=== PATIENT | male | born 1935 | race Caucasian/White ===

== ENCOUNTER → 2021-01-18 | Outpatient (CLI) | payer MEDICARE, OTHER ==
[2021-01-18 08:42] LABS: African American GFR (CKD) >90 (>60 ml/min/1.73 sqM); Blood Urea Nitrogen 25 mg/dL (9-20); Non-African American GFR(CKD) 84 (>60 ml/min/1.73 sqM)
--- NOTE | 2021-01-18 11:32 | CT ---
EXAMINATION TYPE: CT neck chest w con DATE OF EXAM: 01/18/2021 9:08 AM COMPARISON: None HISTORY: neoplasm base of tongue hypopharx, hoarseness CT DLP: 606.1 mGycm Automated exposure control for dose reduction was used. CONTRAST: CT scan of the neck and chest is performed following with IV Contrast, patient injected with 100 mL o f Isovue 300. Axial images are obtained, coronal and sagittal reformatted images are reviewed. FINDINGS: There are some scattered minute nodules, axial image #50 in the right lower lobe and right upper lobe axial image 26 subpleural location and left upper lobe subpleural axial image 23, axial im age 35, subpleural 5 mm nodule axial image 35 right upper lobe. Some scattered emphysematous changes are present Airway: The palatine tonsil on the left appears somewhat disproportionately enlarged as compared to t he right, there is some mass effect on the left lateral margin of the oropharynx, axial image #50. Po or definition of the structures in the neck due to a lack of fat.. Parotid/submandibular glands: No gross abnormality seen. Lateral to the submandibular gland on the l eft there is a lymph node measuring approximately 9 mm in short axis, not enlarged by CT criteria Carotid/Vascular Structures: Dense coronary artery calcifications are present. Aortic aneurysm measur ing 4.6 cm in the ascending aorta noted, root of the aorta is 4 cm, proximal descending aorta 3.3 cm . Left vertebral artery appears dominant. Osseous Structures: Degenerative disc changes are present with facet arthropathy, multilevel foramina l encroachment. Inflammatory changes present within the left maxillary sinus, sphenoid sinus and ethm oid air cells Other: 1 cm noncalcified nodule is present at the level of the right hemidiaphragm, axial image 54. T here is a large suprarenal cyst on the left measuring 15 cm. Hypodense focus within the left lobe of the liver measures 13 mm and is likely represent cyst. On axial image 51 soft tissue noted may relate to patient's known tongue mass. IMPRESSION: Indeterminate pulmonary nodules. Findings consistent with patient's history of tongue ma ss. Asymmetry in the appearance of the palatine tonsils is indeterminate. As described, there are michele e limitations to the exam. Aortic aneurysm.
== END | disposition home or self-care (01) ==
LOC: RADCTMAIN 07:46
PROVIDERS: ATTEND Otolaryngology
DX: C01 Malignant neoplasm of base of tongue (principal); R91.8 Other nonspecific abnormal finding of lung field; I71.2 Thoracic aortic aneurysm, without rupture
CPT/HCPCS: 82565; 84520; 70491; 71260; 36415; Q9967

== ENCOUNTER → 2021-02-10 | Outpatient (CLI) | payer MEDICARE, OTHER ==
--- NOTE | 2021-02-13 06:45 | PE ---
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 TECHNIQUE: Following the intravenous administration of 9.58 mCi of F-18 FDG, whole body images are p erformed from the skull base to the midthigh. Images are reviewed on the computer in the coronal, ax ial, and sagittal planes. Reconstructed rotating images are created on independent workstation and r eviewed on the computer. A localization and attenuation correction CT is performed in conjunction w ith the PET scan. Dedicated PET/CT imaging of the neck performed. Blood glucose level equals 95. SCAN: Initial Scan FINDINGS: SKULL BASE AND NECK: Large mass at level of the tongue base has greater left-sided component measuri ng approximately 4.9 x 4.7 cm on current study axial image 57 but extends to right of midline corresp onding to recent CT axial image 47 max SUV is 13.44. Abnormal right neck adenopathy near axial image 53 just anterior and lateral to carotid vessel measur es 1.6 x 1.5 cm, max SUV is 8.46. There are smaller hypermetabolic left neck lymph nodes at this leve l, max SUV is 6.58 on the left. There is abnormal subcentimeter hypermetabolic lymph node at level of thyroid gland axial image 76, max SUV is 5.24. CHEST, MEDIASTINUM, AND HILAR REGION: No abnormal hypermetabolic uptake or nodules. ABDOMEN AND PELVIS: No abnormal hypermetabolic uptake. OSSEOUS STRUCTURES: No abnormal hypermetabolic uptake. OTHER CT: Mild to moderate calcified plaque bilateral carotid bulb level. Severe three-vessel coronary artery calcification and/or stents. Mild cardiomegaly with small pericar dial effusion. Elevated left hemidiaphragm. Large thin-walled exophytic cyst occupying the majority of the left abdomen from the left kidney with local mass effect is noted. Enlarged prostate consistent with BPH. Scattered pelvic phleboliths. Postsurgical change to the lower lumbar spine. Moderate multilevel spurring and disc space narrowing. IMPRESSION: Known large neoplasm tongue base identified with greater left-sided component. There is a bnormal bilateral neck adenopathy. Multilevel involvement on the left is noted. No distal metastatic disease. Note is made of a large exophytic but benign-appearing thin-walled left-sided renal cyst hav ing significant mass effect in the abdomen. Continued imaging monitoring of tiny pulmonary nodules ad vised.
== END | disposition home or self-care (01) ==
LOC: RADPETMAIN 17:37
PROVIDERS: ATTEND Radiology Radiation Oncology
DX: C01 Malignant neoplasm of base of tongue (principal); R59.0 Localized enlarged lymph nodes; N28.1 Cyst of kidney, acquired
CPT/HCPCS: 78815; A9552

== ENCOUNTER 2021-02-17 12:45 | Day surgery (SDC) | payer MEDICARE, OTHER ==
[2021-02-15 14:13] VITALS: BMI 21.1
[~2021-02-17 12:45] MED LIST: LACTATED RINGERS 1,000 ML IV SCH
[2021-02-17 13:14] VITALS: TEMP 97.5
[2021-02-17] MEDS ORDERED: LIDOCAINE 1% (10MG/ML) FOR IV START INTRADERMA ONE (13:14)
--- NOTE | 2021-02-17 13:56 | P.GSHP ---
History of Present Illness H&P Date: 02/17/21 Chief Complaint: Dysphagia 85-year-old male recently diagnosed with tongue cancer. Patient to begin treatment next week. Patient has had progressive dysphasia. Tolerating only small amounts of liquids at this time. Mild sore throat as well. Contacted by oncology this week. They are requesting a PEG tube placement. Patient also concerned he is becoming more and more malnourished. Significant weight loss. BMI 21. 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 Past Anesthesia/Blood Transfusion Reactions: No Reported Reaction Past Psychological History: No Psychological Hx Reported Smoking Status: Never smoker Past Alcohol Use History: None Reported Past Drug Use History: None Reported - Past Family History Mother Family Medical History: No Reported History Medications and Allergies Home Medications Medication Instructions Recorded Confirmed Type Aspirin 81 mg PO DAILY 02/15/21 02/15/21 History Indapamide 1.25 mg PO QAM 02/15/21 02/15/21 History Losartan [Cozaar] 50 mg PO HS 02/15/21 02/15/21 History Pravastatin Sodium [Pravachol] 40 mg PO HS 02/15/21 02/15/21 History dilTIAZem HCL [dilTIAZem HCL 24Hr 240 mg PO HS 02/15/21 02/15/21 History ER (Xr)] Allergies Allergy/AdvReac Type Severity Reaction Status Date / Time No Known Allergies Allergy Verified 02/17/21 13:07 Surgical - Exam Vital Signs Temp Pulse Resp BP Pulse Ox 97.5 F L 80 16 150/84 96 02/17/21 13:10 02/17/21 13:10 02/17/21 13:10 02/17/21 13:10 02/17/21 13:10 Physical exam: General: Well-developed, malnourished appearing HEENT: Normocephalic, sclerae nonicteric Abdomen: Nontender, nondistended Extremities: No edema Neuro: Alert and oriented Assessment and Plan (1) Tongue cancer Narrative/Plan: Will proceed with EGD and PEG tube placement. Risks of bleeding, infection, scarring, bowel injury, inability to place catheter reviewed. He understands and wishes to proceed. Current Visit: Yes Status: Acute Code(s): C02.9 - MALIGNANT NEOPLASM OF TONGUE, UNSPECIFIED SNOMED Code(s): 503025939
--- NOTE | 2021-02-17 14:13 | P.PCN ---
Date of Procedure: 02/17/21 Procedure(s) Performed: PREOPERATIVE DIAGNOSIS: Malnutrition, dysphasia, tongue cancer POSTOPERATIVE DIAGNOSIS: Same PROCEDURE: EGD with PEG tube placement SURGEON: Dariela EBL: Minimal ANESTHESIA: Sedation COMPLICATIONS: None OPERATIVE PROCEDURE: The patient was placed in the supine position on the endoscopy table. The patient was sedated per anesthesia that time. The Olympus gastroscope was inserted into the oropharynx and passed under direct visualization to the region of the duodenum. No obstruction was seen. The pylorus was widely patent. The stomach was carefully inspected. The stomach was fully insufflated with air. The abdominal wall was inspected. The light was seen shining through the abdominal wall in the left upper quadrant. This site was chosen for PEG tube placement. The area was prepped in the usual sterile fashion. This area was then localized with lidocaine. No air was evident when aspirating while advancing the localizing needle into the stomach until the stomach was reached. A small vertical incision was made using the scalpel. The Seldinger needle was advanced into the lumen of the stomach the wire was advanced. The wire was grasped with an endoscopic snare. The wire was pulled through the oropharynx. The catheter was then threaded over the guidewire and the guidewire and catheter were pulled anteriorly until the hub of the PEG tube catheter was seated against the anterior wall the stomach. The circular bolster was applied and tightened down. The endoscope was then readvanced into the stomach. There was no evidence of any bleeding and there was appropriate tightness on the bolster. The catheter was cut appropriately. The dual port feeding adapter was applied. DISPOSITION: Stable to recovery room
[2021-02-17 14:47] VITALS: RESP 20
[2021-02-17 15:17] VITALS: BP 156/80; PULSE 69
== END 2021-02-17 15:52 | disposition home or self-care (01) ==
LOC: ORWHC2ENDO 12:45
PROVIDERS: ATTEND Surgery
DX: C02.9 Malignant neoplasm of tongue, unspecified (principal); R13.10 Dysphagia, unspecified; E46 Unspecified protein-calorie malnutrition; I10 Essential (primary) hypertension; E78.5 Hyperlipidemia, unspecified; Z98.890 Other specified postprocedural states; Z90.49 Acquired absence of other specified parts of digestive tract; Z79.82 Long term (current) use of aspirin; Z79.899 Other long term (current) drug therapy
CPT/HCPCS: 43246; B4087

== ENCOUNTER → 2021-06-01 | Outpatient (CLI) | payer MEDICARE, OTHER ==
--- NOTE | 2021-06-01 11:59 | FL ---
EXAMINATION TYPE: FL barium swallow w video DATE OF EXAM: 06/01/2021 MODIFIED SWALLOW / DEGLUTITION STUDY CLINICAL HISTORY: Dysphagia. TECHNIQUE: Deglutition study is performed utilizing thin liquid barium, honey and nectar thick liqui d barium. COMPARISON: CT dated 01/18/2021 FINDINGS: Laryngeal penetration was observed in all consistencies with suspected silent aspiration wi th the nectar consistency. Fluoroscopic time 1 minute and 7 seconds. No images in PACS. IMPRESSION: As above. Please refer to speech therapist notes for further details if necessary.
== END | disposition home or self-care (01) ==
LOC: RADFLMAIN 08:46
PROVIDERS: ATTEND Radiology Radiation Oncology
DX: C01 Malignant neoplasm of base of tongue (principal); C77.0 Secondary and unspecified malignant neoplasm of lymph nodes of head, face and neck; R13.10 Dysphagia, unspecified
CPT/HCPCS: 74230

== ENCOUNTER → 2021-06-30 | Outpatient (CLI) | payer MEDICARE, OTHER ==
--- NOTE | 2021-07-03 09:45 | PE ---
EXAMINATION TYPE: PET CT fusion skull to thigh DATE OF EXAM: 06/30/2021 COMPARISON: Neck and chest CT January 18, 2021. PET/CT February 10, 2021. HISTORY: Head and neck cancer progress study. 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 Completed chemotherapy May 02, 2021. Radiation treatme nt to the neck. TECHNIQUE: Following the intravenous administration of 11.73 mCi of F-18 FDG, whole body images are performed from the skull base to the midthigh. Images are reviewed on the computer in the coronal, a xial, and sagittal planes. Reconstructed rotating images are created on independent workstation and reviewed on the computer. A localization and attenuation correction CT is performed in conjunction with the PET scan. Blood glucose level equals 101. Dedicated PET/CT imaging of the neck performed. SCAN: Subsequent Scan FINDINGS: SKULL BASE AND NECK: Large mass at level of the tongue base now not clearly identified, no abnormal hypermetabolic uptake at this level. Abnormal right neck adenopathy now not clearly identified. No definitive hypermetabolic left-sided ly mph nodes remain present. There is now nonvisualized hypermetabolic lymph node left thyroid gland lev el. No new hypermetabolic masses or lymph nodes. CHEST, MEDIASTINUM, AND HILAR REGION: No new areas of abnormal hypermetabolic uptake or nodules. ABDOMEN AND PELVIS: No new areas of abnormal hypermetabolic uptake. OSSEOUS STRUCTURES: No new Areas of abnormal hypermetabolic uptake. OTHER CT: Mild to moderate calcified plaque bilateral carotid bulb level. Severe three-vessel coronary artery calcification and/or stents. Mild cardiomegaly with small pericar dial effusion. Elevated left hemidiaphragm. Large thin-walled exophytic cyst occupying the majority of the left abdomen presumed originating from the left kidney with local mass effect is redemonstrated. Enlarged prostate consistent with BPH. Scattered pelvic phleboliths. Postsurgical change to the lower lumbar spine. Moderate multilevel spurring and disc space narrowing. IMPRESSION: Complete positive treatment response. No new or residual areas of abnormal hypermetabolic uptake.
== END | disposition home or self-care (01) ==
LOC: RADXRMAIN 10:55
PROVIDERS: ATTEND Radiology Radiation Oncology
DX: C01 Malignant neoplasm of base of tongue (principal)
CPT/HCPCS: 78815; A9552

== ENCOUNTER → 2022-01-08 | Outpatient (CLI) | payer MEDICARE, OTHER ==
--- NOTE | 2022-01-08 19:20 | CT ---
EXAMINATION TYPE: CT sacrum wo con, CT lumbar spine wo con CT DLP: 1029.70 mGycm, Automated exposure control for dose reduction was used. DATE OF EXAM: 01/08/2022 4:54 PM COMPARISON: PET/CT 06/30/2021 CLINICAL INDICATION:Male, 86 years old with history of M51.37, low back pain that radiates into legs. hx of back sx many decades ago. TECHNIQUE: * Axial images were obtained of the sacrum . Additional coronal and sagittal reformatted images and soft tissue and bone window were obtained for review. * Multiple axial images were obtained from the midportion of T11 through the sacroiliac joints. Sof t tissue and bone windows in coronal and sagittal planes were obtained and reviewed. Contrast used: None Oral contrast used: None FINDINGS: Sacrum: There is a destructive osseous lesion the posterior element of L5 which extends into the spinal canal findings similar to visualize given streak artifact measures at least 20 x 17 x 19 mm. Causing effac ement of the forming nerves in the nerve roots at L5-S1 and the left neural foramen. Post fixation changes to the posterior elements of the lower lumbar spine extending from L5 to S2. Th ere is no evidence of fracture. Hardware appears intact. There is degeneration changes of the sacroil iac joints bilaterally. These spinal canal in the sacrum is patent. Lumbar: Alignment: There are 5 lumbar type vertebral bodies within normal alignment. Bone: No evidence of fracture is identified. A forementioned osseous lesion within the L5 vertebral body with impression upon the spinal canal and left neural foramen. No other destructive lesions are visualized. Multilevel osteophyte formation and facet joint arthropathy is present. Discs: T12-L1: No spinal canal or neural foraminal stenosis is identified. L1-L2: Disc bulge with facet joint arthropathy result in mild spinal canal stenosis and moderate bila teral neural foraminal stenosis. L2-L3: Disc bulge with facet joint arthropathy result in mild spinal canal stenosis and moderate bila teral neural foraminal stenosis. L3-L4: Disc bulge with facet joint arthropathy result in severe spinal canal stenosis and moderate to severe bilateral neural foraminal stenosis. L4-L5: No significant spinal canal or neural foraminal stenosis is identified. L5-S1: Vertebral body mass within L5 which erodes the posterior endplate and extends into the spinal canal with impression upon likely the forming nerves roots and the exiting L5-S1 left nerve root. Other: Large left renal cyst measuring up to 21 x 14 cm in the left retroperitoneum favored to be manjinder al etiology. Nonobstructing left renal calculus. Prostate gland is enlarged measuring up to 5.4 cm tr ansverse dimension. Scattered pelvic phleboliths. Atherosclerosis of the arterial vasculature. Chroni c diverticulosis is present. IMPRESSION: 1. No evidence of acute fracture. 2. L5 vertebral body eccentric left osseous expansile/destructive lesion measuring up to 20 mm which impresses upon the forming nerve roots and the left L5-S1 exiting nerve. Further evaluation with MRI with IV contrast is recommended. This is new from PET on 06/30/2021 finding could relate to metastati c disease in the appropriate clinical setting. 3. L3-4 severe spinal stenosis secondary to facet joint arthropathy and disc bulge. 4. Postsurgical changes with hardware in place and intact. 5. Clonic diverticulosis. 6. Prostatomegaly. Correlate with PSA.
== END | disposition home or self-care (01) ==
LOC: RADCTMAIN 14:10
PROVIDERS: ATTEND Family Medicine
DX: M51.37 Other intervertebral disc degeneration, lumbosacral region (principal); M48.061 Spinal stenosis, lumbar region without neurogenic claudication; K57.30 Diverticulosis of large intestine without perforation or abscess without bleeding
CPT/HCPCS: 72131; 72192

== ENCOUNTER → 2022-01-08 | Outpatient (CLI) | payer MEDICARE ==
[2022-01-08 13:59] LABS: Basophils # (A) 0.1 k/uL (0-0.2); Basophils % (A) 1 %; Eosinophils # (A) 0.1 k/uL (0-0.7); Eosinophils % (A) 1 %; HCT 43.2 % (39.0-53.0); HGB 13.7 gm/dL (13.0-17.5); Hypochromasia Slight; Lymphocytes # (A) 0.7 k/uL (1.0-4.8); Lymphocytes % (A) 21 %; MCH 29.4 pg (25.0-35.0); MCHC 31.7 g/dL (31.0-37.0); MCV 92.7 fL (80.0-100.0); Mean Platelet Volume 7.7; Monocytes # (A) 0.5 k/uL (0-1.0); Monocytes % (A) 14 %; Neutrophils # (A) 2.1 k/uL (1.3-7.7); Neutrophils % (A) 59 %; Platelet Count 177 k/uL (150-450); RBC 4.66 m/uL (4.30-5.90); RDW 12.8 % (11.5-15.5); WBC 3.6 k/uL (3.8-10.6)
[2022-01-08 14:14] LABS: ALT 26 U/L (4-49); AST 38 U/L (17-59); African American GFR (CKD) >90 (>60 ml/min/1.73 sqM); Albumin/Globulin Ratio 1.4; Alkaline Phosphatase 113 U/L (38-126); Anion Gap 7 mmol/L; Blood Urea Nitrogen 18 mg/dL (9-20); Calcium 9.3 mg/dL (8.4-10.2); Carbon Dioxide 34 mmol/L (22-30); Chloride 94 mmol/L (98-107); Globulin 2.8 g/dL; Glucose 103 mg/dL (74-99); Non-African American GFR(CKD) 85 (>60 ml/min/1.73 sqM); Potassium 4.1 mmol/L (3.5-5.1); Sodium 135 mmol/L (137-145); Total Bilirubin 0.7 mg/dL (0.2-1.3); Total Protein 6.8 g/dL (6.3-8.2)
[2022-01-08 14:30] LABS: T4, Free (Free Thyroxine) 1.06 ng/dL (0.78-2.19)
== END | disposition home or self-care (01) ==
LOC: LABWHC1 13:34
PROVIDERS: ATTEND Family Medicine
DX: M51.36 Other intervertebral disc degeneration, lumbar region (principal); R60.9 Edema, unspecified; Z95.5 Presence of coronary angioplasty implant and graft; M51.37 Other intervertebral disc degeneration, lumbosacral region
CPT/HCPCS: 36415; 80053; 82306; 83880; 84439; 84443; 85025; 85379

== ENCOUNTER → 2022-01-18 | Outpatient (CLI) | payer MEDICARE, OTHER ==
--- NOTE | 2022-01-19 11:14 | CA ---
Transthoracic Echo Report Name: Moisés Diaz Age: 86 Gender: M : 1935 Exam Date: 01/18/2022 13:05 Exam Location: [place] [facility] Ht (in): 72 Wt (lb): 160 Ordering Physician: Jamison Recinos MD Attending/Referring Phys: Kaila Yoder [facility] [employer] Suki Badillo RDCS Procedure CPT: Indications: R60.9 Edema, unspecified Cardiac Hx: Technical Quality: Good Contrast 1: Total Dose (mL): Contrast 2: Total Dose (mL): MEASUREMENTS (Male / Female) Normal Values 2D ECHO LV Diastolic Diameter PLAX 4.2 cm 4.2 - 5.9 / 3.9 - 5.3 cm LV Systolic Diameter PLAX 2.5 cm IVS Diastolic Thickness 1.4 cm 0.6 - 1.0 / 0.6 - 0.9 cm LVPW Diastolic Thickness 1.3 cm 0.6 - 1.0 / 0.6 - 0.9 cm LV Relative Wall Thickness 0.6 RV Internal Dim ED PLAX 3.3 cm LA Systolic Diameter LX 3.8 cm 3.0 - 4.0 / 2.7 - 3.8 cm LA Volume 73.9 cm??? 18 - 58 / 22 - 52 cm??? M-MODE Aortic Root Diameter MM 3.5 cm MV E Point Septal Separation 0.3 cm AV Cusp Separation MM 1.4 cm DOPPLER AV Peak Velocity 158.5 cm/s AV Peak Gradient 10.1 mmHg MV Area PHT 4.0 cm??? Mitral E Point Velocity 86.3 cm/s Mitral A Point Velocity 104.7 cm/s Mitral E to A Ratio 0.8 MV Deceleration Time 188.2 ms MV E' Velocity 7.6 cm/s Mitral E to MV E' Ratio 11.3 TR Peak Velocity 240.1 cm/s TR Peak Gradient 23.1 mmHg Right Ventricular Systolic Press 27.7 mmHg FINDINGS Left Ventricle Left ventricular ejection fraction is estimated at 60-65 %. Left ventricular cavity size normal. Moderately increased septal wall thickness. Right Ventricle Mild right ventricular dilatation. Right Atrium Normal right atrial size. Left Atrium Moderately increased left atrial volume. No evidence for an atrial septal defect. Mitral Valve Mitral valve thickened. Mitral annular calcification. Mild mitral regurgitation. Aortic Valve Trileaflet aortic valve. No aortic valve stenosis or regurgitation. Focal thickening of the aortic valve cusps. Tricuspid Valve Mild tricuspid regurgitation. Pulmonic Valve Trace to mild pulmonic regurgitation. Pericardium Normal pericardium. No pericardial effusion. Aorta Normal size aortic root and proximal ascending aorta. CONCLUSIONS Normal left ventricular ejection fraction 60-65% Moderate LVH Mild mitral regurgitation Aortic valve sclerosis without significant stenosis Mild tricuspid regurgitation Previewed by: Dr. Prashant Colby DO (Electronically Signed) Final Date: 19 January 2022 11:12
== END | disposition home or self-care (01) ==
LOC: RADECHMAIN 12:58
PROVIDERS: ATTEND Family Medicine
DX: I08.3 Combined rheumatic disorders of mitral, aortic and tricuspid valves (principal)
CPT/HCPCS: 93306

== ENCOUNTER 2022-02-27 08:00 | Day surgery (SDC) | payer MEDICARE, OTHER ==
[~2022-02-27 08:00] MED LIST changes: +ALPRAZolam 0.25 MG TAB PO PRN; +HYDROmorphone 0.5 MG/0.5 ML SYRINGE IVP PRN; -LACTATED RINGERS 1,000 ML IV SCH
[2022-02-27 08:48] VITALS: RESP 16; TEMP 97.9
[2022-02-27 08:48] LABS: Mean Platelet Volume 7.2; Platelet Count 118 k/uL (150-450)
--- NOTE | 2022-02-27 10:34 | CT ---
EXAMINATION TYPE: CT biopsy bone superficial DATE OF EXAM: 02/27/2022 COMPARISON: 01/30/2022 HISTORY: L5 vertebral body lesion CT DLP: 2194 mGycm The procedure is discussed with the patient, the risks, complications, benefits and alternatives, wer e discussed and any questions were answered. Informed consent was obtained. The patient is placed p renee on the CT table, prepped and draped in the usual sterile fashion. Utilizing a 20-gauge biopsy needle access into the destructive L5 vertebral mass was achieved with on e sample obtained. Pathology pending. All elements of maximal barrier sterile technique were utiliz ed. The patient remained stable throughout the procedure with no immediate postprocedural complicati on. IMPRESSION: 1. Successful CT guided fine core biopsy L5 vertebral body mass.
[2022-02-27 11:06] VITALS: BP 128/76; PULSE 65
== END 2022-02-27 11:40 | disposition home or self-care (01) ==
LOC: RADPROMAIN 08:00
PROVIDERS: ATTEND Internal Medicine Hematology & Oncology
DX: S34.115A Complete lesion of L5 level of lumbar spinal cord, initial encounter (principal)
CPT/HCPCS: 20220; 36415; 77012; 85049; 85610

== ENCOUNTER 2022-09-04 10:14 | Emergency (ER) | payer MEDICARE, OTHER ==
[2022-09-04 10:46] VITALS: TEMP 98
[2022-09-04] MEDS ORDERED: SODIUM CHLORIDE 0.9% 1,000 ML IV STA (12:21)
--- NOTE | 2022-09-04 12:39 | ED ---
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 Patient states he has noticed it in bilateral lower extremities and it is equal. Denies any urinary or bowel incontinence, retention. Denies any saddle anesthesias. Denies any abdominal pain, chest pain, shortness of breath. Denies any other weakness or numbness. Denies any headaches. States he has been eating. Presents for further evaluation this time with family over concern for the progressive worsening weakness. Does have close follow-up with PCP's, as well as oncology. - Related Data Home Medications Medication Instructions Recorded Confirmed Aspirin 81 mg PO DAILY 02/15/21 09/04/22 Indapamide 1.25 mg PO QAM 02/15/21 09/04/22 Pravastatin Sodium [Pravachol] 40 mg PO HS 02/15/21 09/04/22 dilTIAZem HCL [dilTIAZem HCL 24Hr 240 mg PO HS 02/15/21 09/04/22 ER (Xr)] Multivitamins, Thera [Multivitamin 1 tab PO DAILY 02/12/22 09/04/22 (formulary)] Omeprazole 20 mg PO DAILY 02/12/22 09/04/22 Vit C/E/Zn/Coppr/Lutein/Zeaxan 1 cap PO BID 02/12/22 09/04/22 [Preservision Areds 2 Softgel] Docusate [Colace] 100 mg PO DAILY 09/04/22 09/04/22 Furosemide [Lasix] 20 mg PO DAILY 09/04/22 09/04/22 HYDROcodone/APAP 5-325MG [[place] 1 tab PO Q6HR PRN 09/04/22 09/04/22 5-325] Allergies Allergy/AdvReac Type Severity Reaction Status Date / Time cinnamon Allergy Anaphylaxis Verified 09/04/22 15:45 Penicillins Allergy Rash/Hives Verified 09/04/22 15:45 Review of Systems ROS Statement: Those systems with pertinent positive or pertinent negative responses have been documented in the HPI. Review of Systems: CONST: Denies fever EYES: Denies blurry vision ENT: Denies nasal congestion C/V: Denies Chest pain RESP: Denies shortness of breath GI: Denies abdominal pain : Denies dysuria SKIN: Denies rash. MSK: Denies joint pain. NEURO: Endorses lower extremity weakness ROS Other: All systems not noted in ROS Statement are negative. 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 Past Anesthesia/Blood Transfusion Reactions: No Reported Reaction Past Psychological History: No Psychological Hx Reported Smoking Status: Never smoker Past Alcohol Use History: None Reported Past Drug Use History: None Reported - Past Family History Mother Family Medical History: No Reported History General Exam - General Exam Comments Initial Comments: General: Appears in no acute distress. Patient is cachectic. HEAD: Normal with no signs of head trauma. EYES: PERRLA, EOMI, conjunctiva normal, no discharge. Pupils are 2 mm equal bilaterally. ENT: Hearing grossly intact, normal oropharynx. RESPIRATORY: Clear breath sounds bilaterally. No wheezes, rales, or rhonchi. C/V: Regular rate and rhythm. S1 and S2 auscultated, significant pitting edema in bilateral lower extremities., peripheral pulses 2+ and intact throughout ABD: Abd is soft, nontender, nondistended EXT: Normal range of motion, no obvious deformity SKIN: No rashes or lesions observed on exposed skin. NEURO: Alert and oriented x 4. Cranial nerves II-XII intact. 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 Patient does have lower extremity weakness, able to lift against gravity but it is difficult. 4-5 strength in bilateral lower extremities. GCS is 15. No other focal neurological deficits appreciated. No saddle anesthesias. Limitations: no limitations Course Vital Signs 09/04/22 09/04/22 09/04/22 10:43 12:12 12:30 Temperature 98.0 F Pulse Rate 90 86 78 Respiratory 18 16 18 Rate Blood Pressure 115/80 127/69 127/69 O2 Sat by Pulse 98 98 98 Oximetry 09/04/22 09/04/22 09/04/22 13:00 13:30 14:30 Temperature Pulse Rate 76 72 75 Respiratory 20 20 18 Rate Blood Pressure 123/82 131/77 143/97 O2 Sat by Pulse 79 L 98 98 Oximetry 09/04/22 15:30 Temperature Pulse Rate 83 Respiratory 18 Rate Blood Pressure 136/83 O2 Sat by Pulse 98 Oximetry Medical Decision Making - Medical Decision Making Was pt. sent in by a medical professional or institution (, PA, FORESTRY EXTENSION SPECIALIST, urgent care, hospital, or group home...) When possible be specific @ -No Did you speak to anyone other than the patient for history (EMS, parent, family, police, friend...)? What history was obtained from this source @ -No Did you review nursing and triage notes (agree or disagree)? Why? @ -I reviewed and agree with nursing and triage notes Were old charts reviewed (outside hosp., previous admission, EMS record, old EKG, old radiological studies, urgent care reports/EKG's, group home records)? Report findings @ -Old lumbar spine CTs were reviewed, including from May which did reveal a lytic distractive lesions of L5 as well as enlarging hepatic epistatic focus Differential Diagnosis (chest pain, altered mental status, abdominal pain women, abdominal pain men, vaginal bleeding, weakness, fever, dyspnea, syncope, headache, dizziness, GI bleed, back pain, seizure, CVA, palpatations, mental health, musculoskeletal)? @ -Differential Weakness: Hypoglycemia, shock, sepsis, hyponatremia, anemia, infection, [place], ETOH, adverse medicine reaction, overdose, stroke, this is not meant to be an all-inclusive list. EKG interpreted by me (3pts min.). @ -As above X-rays interpreted by me (1pt min.). @ -Chest x-ray reveals no obvious acute cardiopulmonary process. Right hip and pelvis x-ray reveals no obvious acute process. Patient does have some foreshortening of the right femoral neck per radiology and they recommend CT imaging. CT interpreted by me (1pt min.). @ -CT imaging of the lumbar spine and brain CT showed no obvious acute process. His chronic degenerative and lytic changes and lumbar spine which are minimally changed per radiology. CT brain reveals no obvious acute intracranial process. U/S interpreted by me (1pt. min.). @ -None done What testing was considered but not performed or refused? (CT, X-rays, U/S, labs)? Why? @ -None What meds were considered but not given or refused? Why? @ -None Did you discuss the management of the patient with other professionals (migdalia cano i.e. , PA, FORESTRY EXTENSION SPECIALIST, lab, RT, psych nurse, long term care social worker, department manager, teacher, seismology technical officer, showcase trimmer)? Give summary @ -No Was smoking cessation discussed for >3mins.? @ -No Was critical care preformed (if so, how long)? @ -No Were there social determinants of health that impacted care today? How? (Homelessness, low income, unemployed, alcoholism, drug addiction, transportatio n, low edu. Level, literacy, decrease access to med. care, [facility], rehab)? @ -No Was there de-escalation of care discussed even if they declined (Discuss DNR or withdrawal of care, Hospice)? DNR status @ -No What co-morbidities impacted this encounter? (DM, HTN, Smoking, COPD, CAD, Cancer, CVA, ARF, Chemo, Hep., AIDS, mental health diagnosis, sleep apnea, morbid obesity)? @ -History of metastatic cancer Was patient admitted / discharged? Hospital course, mention meds given and route, prescriptions, significant lab abnormalities, going to OR and other pertinent info. @ -Based on the patient's presentation and physical exam, presents with generalized weakness. Has been progressive over the last 2 weeks. Has a known history of metastatic cancer. Also apparently has a known lytic lesion in the lumbar spine. Presents for further evaluation at this time. We will obtain weakness labs including screening EKG, BNP, CT brain and lumbar spine, as well as chest x-ray and right hip and pelvis x-rays patient states he intermittently will have right hip pain which is somewhat abnormal for him. Vital signs within acceptable limits. He does appear cachectic. He'll be given a 1 L fluid bolus. He was in agreement this plan. EKG showed no signs of acute ischemia.Patient's imaging did reveal the chronic lytic changes and degeneration in the lumbar spine with minimal change. Right hip x-ray does show foreshortening of the right femoral neck. Radiology recommends CT. I did offer CT imaging of the pelvis as well as right hip for the patient however he declines as he states he is able to stand on it, he has chronic mid and right hip pain and this is not acute. Does not believe it is broken and does not want the CT. I did discuss the concerns for possible fracture and he understands but states he obtain a CT later on if he feels the need if the pain changes. He is not concerned. He does not want CT imaging of the right hip at this time. Patient's laboratory studies are remarkable for a mild hypokalemia at 3.2 as well as hyponatremia of 129 and hypochloremia of 87 all of which were replenishe d with IV fluids as well as supplemental potassium. Patient is a chronic anemia with a hemoglobin of 11.9. Carbon dioxide is elevated to 37 but this is chronic for the patient. Troponin is undetectable. BNP within normal limits. 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 I discussed results with the patient. Due to the low back pain, I would like to obtain a rectal exam and he was in agreement with. Rectal exam performed the presence of the staff member. Good rectal tone. Patient is not having urinary or bowel incontinence, is not having saddle anesthesias. Simply bilateral lower extremity weakness. I do not have significant concern for cauda equina syndrome at this time but I did recommend follow-up MRI if symptoms worsen. She was in agreement this plan. He would like to go home at this time. I believe this is reasonable. Once again I reiterated possible follow-up MRI versus CT to evaluate patient's right hip. They were in agreement this plan. They do have follow-up with physician this week because appointments. They will return if any worsening symptoms. Strict return precautions discussed. Patient will be discharged home at this time. We discussed at length that his symptoms are likely related to his chronic metastatic cancer. I instructed the patient to follow up with their PCP in the next 1-3 days. I explained that the patient should return to the emergency department if they e xperience any worsening symptoms. Strict return precautions were discussed with the patient. The patient expressed understanding of these instructions. I answered all questions that the patient had. The patient was discharged home in fair condition with their prescriptions and follow up information. Undiagnosed new problem with uncertain prognosis? @ -No Drug Therapy requiring intensive monitoring for toxicity (Heparin, Nitro, Insulin, Cardizem)? @ -No Were any procedures done? @ -No Diagnosis/symptom? @ -Weakness, dehydration, hypokalemia Acute, or Chronic, or Acute on Chronic? @ -Acute Uncomplicated (without systemic symptoms) or Complicated (systemic symptoms)? @ -Complicated Side effects of treatment? @ -none Exacerbation, Progression, or Severe Exacerbation] @ -no Poses a threat to life or bodily function? @ -no Diagnosis/symptom? @ -Metastatic cancer Acute, or Chronic, or Acute on Chronic? @ -Acute on chronic Uncomplicated (without systemic symptoms) or Complicated (systemic symptoms)? @ -Complicated Side effects of treatment? @ -none Exacerbation, Progression, or Severe Exacerbation] @ -no Poses a threat to life or bodily function? @ -Yes - Lab Data Result diagrams: 09/04/22 13:12 09/04/22 13:12 Lab Results 09/04/22 09/04/22 09/04/22 Range/Units 13:12 13:12 13:12 WBC 8.4 (3.8-10.6) k/uL RBC 4.46 (4.30-5.90) m/uL Hgb 11.9 L (13.0-17.5) gm/dL Hct 36.3 L (39.0-53.0) % MCV 81.4 (80.0-100.0) fL MCH 26.7 (25.0-35.0) pg MCHC 32.8 (31.0-37.0) g/dL RDW 16.0 H (11.5-15.5) % Plt Count 344 (150-450) k/uL MPV 7.0 Neutrophils % 80 % Lymphocytes % 6 % Monocytes % 12 % Eosinophils % 0 % Basophils % 0 % Neutrophils # 6.7 (1.3-7.7) k/uL Lymphocytes # 0.5 L (1.0-4.8) k/uL Monocytes # 1.0 (0-1.0) k/uL Eosinophils # 0.0 (0-0.7) k/uL Basophils # 0.0 (0-0.2) k/uL Anisocytosis Slight PT 11.5 (9.0-12.0) sec INR 1.1 (<1.2) APTT 25.5 (22.0-30.0) sec Sodium 129 L (137-145) mmol/L Potassium 3.2 L (3.5-5.1) mmol/L Chloride 87 L (98-107) mmol/L Carbon Dioxide 37 H (22-30) mmol/L Anion Gap 5 mmol/L BUN 14 (9-20) mg/dL Creatinine 0.37 L (0.66-1.25) mg/dL Est GFR (CKD-EPI)AfAm >90 (>60 ml/min/1.73 sqM) Est GFR (CKD-EPI)NonAf >90 (>60 ml/min/1.73 sqM) Glucose 103 H (74-99) mg/dL Plasma Lactic Acid Ciro (0.7-2.0) mmol/L Calcium 7.9 L (8.4-10.2) mg/dL Magnesium 1.9 (1.6-2.3) mg/dL Total Bilirubin 1.2 (0.2-1.3) mg/dL AST 105 H (17-59) U/L ALT 50 H (4-49) U/L Alkaline Phosphatase 367 H (38-126) U/L Troponin I (0.000-0.034) ng/mL NT-Pro-B Natriuret Pep pg/mL Total Protein 5.7 L (6.3-8.2) g/dL Albumin 2.8 L (3.5-5.0) g/dL Urine Color Urine Appearance (Clear) Urine pH (5.0-8.0) Ur Specific Ponce (1.001-1.035) Urine Protein (Negative) Urine Glucose (UA) (Negative) Urine Ketones (Negative) Urine Blood (Negative) Urine Nitrite (Negative) Urine Bilirubin (Negative) Urine Urobilinogen (<2.0) mg/dL Ur Leukocyte Esterase (Negative) 09/04/22 09/04/22 09/04/22 Range/Units 13:12 13:12 13:12 WBC (3.8-10.6) k/uL RBC (4.30-5.90) m/uL Hgb (13.0-17.5) gm/dL Hct (39.0-53.0) % MCV (80.0-100.0) fL MCH (25.0-35.0) pg MCHC (31.0-37.0) g/dL RDW (11.5-15.5) % Plt Count (150-450) k/uL MPV Neutrophils % % Lymphocytes % % Monocytes % % Eosinophils % % Basophils % % Neutrophils # (1.3-7.7) k/uL Lymphocytes # (1.0-4.8) k/uL Monocytes # (0-1.0) k/uL Eosinophils # (0-0.7) k/uL Basophils # (0-0.2) k/uL Anisocytosis PT (9.0-12.0) sec INR (<1.2) APTT (22.0-30.0) sec Sodium (137-145) mmol/L Potassium (3.5-5.1) mmol/L Chloride (98-107) mmol/L Carbon Dioxide (22-30) mmol/L Anion Gap mmol/L BUN (9-20) mg/dL Creatinine (0.66-1.25) mg/dL Est GFR (CKD-EPI)AfAm (>60 ml/min/1.73 sqM) Est GFR (CKD-EPI)NonAf (>60 ml/min/1.73 sqM) Glucose (74-99) mg/dL Plasma Lactic Acid Ciro 1.9 (0.7-2.0) mmol/L Calcium (8.4-10.2) mg/dL Magnesium (1.6-2.3) mg/dL Total Bilirubin (0.2-1.3) mg/dL AST (17-59) U/L ALT (4-49) U/L Alkaline Phosphatase (38-126) U/L Troponin I (0.000-0.034) ng/mL NT-Pro-B Natriuret Pep 246 pg/mL Total Protein (6.3-8.2) g/dL Albumin (3.5-5.0) g/dL Urine Color Yellow Urine Appearance Clear (Clear) Urine pH 7.0 (5.0-8.0) Ur Specific Ponce 1.010 (1.001-1.035) Urine Protein Negative (Negative) Urine Glucose (UA) Negative (Negative) Urine Ketones Negative (Negative) Urine Blood Negative (Negative) Urine Nitrite Negative (Negative) Urine Bilirubin Negative (Negative) Urine Urobilinogen 4.0 (<2.0) mg/dL Ur Leukocyte Esterase Negative (Negative) 09/04/22 Range/Units 13:12 WBC (3.8-10.6) k/uL RBC (4.30-5.90) m/uL Hgb (13.0-17.5) gm/dL Hct (39.0-53.0) % MCV (80.0-100.0) fL MCH (25.0-35.0) pg MCHC (31.0-37.0) g/dL RDW (11.5-15.5) % Plt Count (150-450) k/uL MPV Neutrophils % % Lymphocytes % % Monocytes % % Eosinophils % % Basophils % % Neutrophils # (1.3-7.7) k/uL Lymphocytes # (1.0-4.8) k/uL Monocytes # (0-1.0) k/uL Eosinophils # (0-0.7) k/uL Basophils # (0-0.2) k/uL Anisocytosis PT (9.0-12.0) sec INR (<1.2) APTT (22.0-30.0) sec Sodium (137-145) mmol/L Potassium (3.5-5.1) mmol/L Chloride (98-107) mmol/L Carbon Dioxide (22-30) mmol/L Anion Gap mmol/L BUN (9-20) mg/dL Creatinine (0.66-1.25) mg/dL Est GFR (CKD-EPI)AfAm (>60 ml/min/1.73 sqM) Est GFR (CKD-EPI)NonAf (>60 ml/min/1.73 sqM) Glucose (74-99) mg/dL Plasma Lactic Acid Ciro (0.7-2.0) mmol/L Calcium (8.4-10.2) mg/dL Magnesium (1.6-2.3) mg/dL Total Bilirubin (0.2-1.3) mg/dL AST (17-59) U/L ALT (4-49) U/L Alkaline Phosphatase (38-126) U/L Troponin I <0.012 (0.000-0.034) ng/mL NT-Pro-B Natriuret Pep pg/mL Total Protein (6.3-8.2) g/dL Albumin (3.5-5.0) g/dL Urine Color Urine Appearance (Clear) Urine pH (5.0-8.0) Ur Specific Ponce (1.001-1.035) Urine Protein (Negative) Urine Glucose (UA) (Negative) Urine Ketones (Negative) Urine Blood (Negative) Urine Nitrite (Negative) Urine Bilirubin (Negative) Urine Urobilinogen (<2.0) mg/dL Ur Leukocyte Esterase (Negative) - EKG Data -: EKG Interpreted by Me EKG Comments: 12-lead Electrocardiogram Interpretation Note EKG was reviewed and interpreted by myself. 12-lead ECG performed at 1225 is interpreted by me as revealing normal sinus rhythm at a rate of 80 beats per minute. Left axis deviation. CT interval is 190 ms, QRS duration is 92 ms, QTc is 427 ms.. Flattening of T waves in leads V2 and V3. Unknown chronicity of his no prior EKG. No other acute T-wave or ST segment abnormality to suggest acute ischemia.. R wave progression across the precordium was satisfactory. By my interpretation this EKG is non-diagnostic for acute ischemia. Disposition Clinical Impression: Metastatic cancer, Weakness, Dehydration, Hypokalemia Disposition: HOME SELF-CARE Condition: Good Instructions (If sedation given, give patient instructions): Weakness (ED) Is patient prescribed a controlled substance at d/c from ED?: No Referrals: Jamison Recinos MD [Primary Care Provider] - 1-2 days Time of Disposition: 15:25
--- NOTE | 2022-09-04 12:59 | CT ---
EXAMINATION TYPE: CT brain wo con DATE OF EXAM: 09/04/2022 COMPARISON: None HISTORY: weakness CT DLP: 1099.[address] of the brain was performed. The ventricles, basal cisterns and sulci overlying the cerebral convexities demonstrate mild enlargem ent. There is no evidence for intracranial hemorrhage or sulcal effacement. There is decreased attenuation about the periventricular white matter and deep white matter of both c erebral hemispheres, compatible with chronic small vessel ischemia. Differential diagnosis does inclu de demyelination. No mass effects are seen.No midline shift. Osseous calvarium is intact. If symptoms persist consider MRI. IMPRESSION: 1. Age related atrophic and chronic small vessel ischemic change without acute intracranial process s een at this time.
--- NOTE | 2022-09-04 13:09 | CT ---
EXAMINATION TYPE: CT lumbar spine wo con DATE OF EXAM: 09/04/2022 COMPARISON: 05/31/2022 HISTORY: BLLE weakness CT DLP: 721.[address] of the lumbar spine was performed. Bone and soft tissue window settings are submitted as well as coronal and sagittal reconstructions. L1-L2: Moderate to severe degenerative disc space narrowing redemonstrated. No significant disc bulge , herniation or protrusion. No evidence for central stenosis. Bilateral spondylolysis identified. For ton are patent bilaterally. L2-L3: Severe degenerative disc space narrowing and vacuum disc seen. Mild posterior disc bulge. Effa cement ventral thecal sac with moderate central stenosis noted. Hypertrophy of the ligamentum flavum and facet joint arthropathy. No significant neural foraminal encroachment at this time. L3-L4: Severe degenerative disc space narrowing and vacuum disc seen. Mild posterior disc bulge. Effa cement ventral thecal sac with moderate central stenosis noted. Hypertrophy of the ligamentum flavum and facet joint arthropathy. No significant neural foraminal encroachment at this time. L4-L5: Postoperative changes of fusion. Fixation screws and plate noted in place. Moderate degenerati ve disc space narrowing. No evidence of disc herniation or central stenosis. Mild left neural foramin al encroachment. L5-S1: Postoperative changes of fusion. Fixation screws in plate noted to be in place. Again noted is a destructive L5 lesion posterior vertebral body measuring 3.7 x 2.5 cm versus 3.6 x 2.[address] No definite epidural extension seen however lack of contrast limits evaluation. No new lesions pr esent. No evidence for central stenosis or disc herniation at this level. Moderate degenerative disc space narrowing. Large left renal cyst redemonstrated. Nonobstructing upper pole calculus left kidney. No vertebral fr acture seen. IMPRESSION: 1. 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 2. Destructive vertebral body lesion of L5 is minimally enlarged in the interval.
[2022-09-04 13:34] LABS: Anisocytosis Slight; Basophils % (A) 0 %; Eosinophils % (A) 0 %; HCT 36.3 % (39.0-53.0); HGB 11.9 gm/dL (13.0-17.5); Lymphocytes # (A) 0.5 k/uL (1.0-4.8); Lymphocytes % (A) 6 %; MCH 26.7 pg (25.0-35.0); MCHC 32.8 g/dL (31.0-37.0); MCV 81.4 fL (80.0-100.0); Monocytes % (A) 12 %; Neutrophils # (A) 6.7 k/uL (1.3-7.7); Neutrophils % (A) 80 %; Platelet Count 344 k/uL (150-450); RBC 4.46 m/uL (4.30-5.90); WBC 8.4 k/uL (3.8-10.6)
[2022-09-04 13:45] LABS: INR 1.1 (<1.2); Partial Thromboplastin Time 25.5 sec (22.0-30.0); Prothrombin Time 11.5 sec (9.0-12.0)
[2022-09-04 13:56] LABS: ALT 50 U/L (4-49); AST 105 U/L (17-59); African American GFR (CKD) >90 (>60 ml/min/1.73 sqM); Albumin 2.8 g/dL (3.5-5.0); Alkaline Phosphatase 367 U/L (38-126); Anion Gap 5 mmol/L; Blood Urea Nitrogen 14 mg/dL (9-20); Calcium 7.9 mg/dL (8.4-10.2); Carbon Dioxide 37 mmol/L (22-30); Chloride 87 mmol/L (98-107); Glucose 103 mg/dL (74-99); Magnesium 1.9 mg/dL (1.6-2.3); Non-African American GFR(CKD) >90 (>60 ml/min/1.73 sqM); Potassium 3.2 mmol/L (3.5-5.1); Sodium 129 mmol/L (137-145); Total Bilirubin 1.2 mg/dL (0.2-1.3); Total Protein 5.7 g/dL (6.3-8.2)
--- NOTE | 2022-09-04 14:08 | XR ---
EXAMINATION TYPE: XR chest 2V DATE OF EXAM: 09/04/2022 COMPARISON: NONE TECHNIQUE: PA and lateral views submitted. HISTORY: Pain FINDINGS: The lungs are clear and there is no pneumothorax, pleural effusion, or focal pneumonia. Heart size normal and no overt failure. Osseous structures demonstrate hypertrophic and degenerative changes of the spine. Hyperinflation of the lungs. Atherosclerotic change aorta. Diffuse osteopenia throughout t he shoulders. IMPRESSION: 1. No acute process.
--- NOTE | 2022-09-04 14:10 | XR ---
EXAMINATION TYPE: XR Hip RT and AP Pelvis DATE OF EXAM: 09/04/2022 COMPARISON: NONE HISTORY: Obtained TECHNIQUE: A single AP view of the pelvis is obtained. Two views of the tibia hip are obtained. FINDINGS: Postsurgical change involving the lower lumbar spine and sacrum. SI joints symmetric. Moderate concen tric narrowing of the joints. Correlate for femoral acetabular impingement. Vascular calcifications n oted. There is foreshortening of the right femoral neck. IMPRESSION: 1. There is foreshortening of the right femoral neck. Would recommend CT of the right hip to exclude fracture.
[2022-09-04 15:18] LABS: Appearance,Urine Clear (Clear); Bilirubin,Urine Negative (Negative); Blood,Urine Negative (Negative); Color,Urine Yellow; Glucose,Urine (UA) Negative (Negative); Ketones,Urine Negative (Negative); Leukocyte Esterase,Urine Negative (Negative); Nitrite,Urine Negative (Negative); Protein,Urine Negative (Negative)
[2022-09-04] MEDS ORDERED: POTASSIUM CHLORIDE ER 20 MEQ TAB.ER PO STA (15:37)
[2022-09-04 15:46] VITALS: BP 136/83; PULSE 83; RESP 18
== END 2022-09-04 16:03 | disposition home or self-care (01) ==
LOC: EC 10:14
DX: E86.0 Dehydration (principal); E87.6 Hypokalemia; C79.89 Secondary malignant neoplasm of other specified sites; M25.551 Pain in right hip; I10 Essential (primary) hypertension; Z79.899 Other long term (current) drug therapy; Z88.0 Allergy status to penicillin; Z91.018 Allergy to other foods
CPT/HCPCS: 36415; 70450; 71046; 72131; 73502; 80053; 81003; 83605; 83735; 83880; 84484; 85025; 85610; 85730; 93005; 96360; 99285

== ENCOUNTER 2022-09-12 16:05 | Inpatient (IN) | payer MEDICARE, OTHER ==
--- NOTE | 2022-09-12 16:53 | ED ---
General Adult HPI - General Chief complaint: Weakness Stated complaint: Weakness Time Seen by Provider: 09/12/22 16:30 Source: patient, EMS, RN notes reviewed, old records reviewed Mode of arrival: EMS Limitations: physical limitation - History of Present Illness Initial comments: This is an 86-year-old male who presents emergency Department with a past medical history significant for throat cancer. Patient comes in today stating he's becoming weaker and weaker over the last couple weeks. Patient states his legs have become much more swollen as well. Patient denies any fever chills or cough per patient denies any difficulty breathing or shortness of breath. Patient states he does have a little right upper quadrant abdominal pain which just started this morning. Patient denies nausea vomiting diarrhea. Patient denies any back pain. Patient denies dysuria hematuria urinary frequency. - Related Data Home Medications Medication Instructions Recorded Confirmed Aspirin 81 mg PO DAILY 02/15/21 09/12/22 Indapamide 1.25 mg PO DAILY 02/15/21 09/12/22 Pravastatin Sodium [Pravachol] 40 mg PO HS 02/15/21 09/12/22 dilTIAZem HCL [dilTIAZem HCL 24Hr 240 mg PO HS 02/15/21 09/12/22 ER (Xr)] Multivitamins, Thera [Multivitamin 1 tab PO DAILY 02/12/22 09/12/22 (formulary)] Omeprazole 20 mg PO DAILY 02/12/22 09/12/22 Vit C/E/Zn/Coppr/Lutein/Zeaxan 1 cap PO BID 02/12/22 09/12/22 [Preservision Areds 2 Softgel] Docusate [Colace] 100 mg PO DAILY 09/04/22 09/12/22 Furosemide [Lasix] 20 mg PO DAILY 09/04/22 09/12/22 HYDROcodone/APAP 5-325MG [[place] 1 tab PO Q6HR PRN 09/04/22 09/12/22 5-325] Allergies Allergy/AdvReac Type Severity Reaction Status Date / Time cinnamon Allergy Anaphylaxis Verified 09/12/22 20:26 Penicillins Allergy Rash/Hives Verified 09/12/22 20:26 Review of Systems ROS Statement: Those systems with pertinent positive or pertinent negative responses have been documented in the HPI. ROS Other: All systems not noted in ROS Statement are negative. 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 Past Anesthesia/Blood Transfusion Reactions: No Reported Reaction Past Psychological History: No Psychological Hx Reported Smoking Status: Never smoker Past Alcohol Use History: None Reported Past Drug Use History: None Reported - Past Family History Mother Family Medical History: No Reported History General Exam - General Exam Comments Initial Comments: GENERAL: Patient is well-developed and well-nourished. Patient is nontoxic and well- hydrated and is in mild distress. ENT: Neck is soft and supple. No significant lymphadenopathy is noted. Oropharynx is clear. Moist mucous membranes. Neck has full range of motion without eliciting any pain. EYES: The sclera were anicteric and conjunctiva were pink and moist. Extraocular movements were intact and pupils were equal round and reactive to light. Eyelids were unremarkable. PULMONARY: Unlabored respirations. Good breath sounds bilaterally. No audible rales rhonchi or wheezing was noted. CARDIOVASCULAR: There is a regular rate and rhythm without any murmurs gallops or rubs. ABDOMEN: Patient is in mild upper quadrant tenderness SKIN: Skin is clear with no lesions or rashes and otherwise unremarkable. NEUROLOGIC: Patient is alert and oriented x3. Cranial nerves II through XII are grossly intact. Motor and sensory are also intact. Normal speech, volume and content. Symmetrical smile. MUSCULOSKELETAL: Normal extremities with adequate strength and full range of motion. 2+ edema bilaterally LYMPHATICS: No significant lymphadenopathy is noted PSYCHIATRIC: Normal psychiatric evaluation. Limitations: physical limitation Course Vital Signs 09/12/22 09/12/22 09/12/22 16:11 16:41 19:07 Temperature 97.3 F L Pulse Rate 98 91 Pulse Rate [ 98 Dermatologist ] Respiratory 20 18 Rate Blood Pressure 124/80 129/82 O2 Sat by Pulse 96 97 Oximetry 09/12/22 20:37 Temperature Pulse Rate 89 Pulse Rate [ Dermatologist ] Respiratory 16 Rate Blood Pressure 129/78 O2 Sat by Pulse 96 Oximetry Medical Decision Making - Medical Decision Making EKG was interpreted by myself shows normal sinus rhythm at 96 bpm MN interval 160 QRS is 88 QT interval 360 QTC is 464. Patient's EKG shows no ST segment e levation however there is some T-wave inversions in V1 and V2 and V3. Was pt. sent in by a medical professional or institution ([facility], [employer], urgent care, hospital, or half-way...) When possible be specific @ -No Did you speak to anyone other than the patient for history (EMS, parent, family, police, friend...)? What history was obtained from this source @ -No Did you review nursing and triage notes (agree or disagree)? Why? @ -I reviewed and agree with nursing and triage notes Were old charts reviewed (outside hosp., previous admission, EMS record, old E KG, old radiological studies, urgent care reports/EKG's, half-way records)? Report findings @ -I reviewed prior charts prior lab work and prior radiological studies on this patient Differential Diagnosis (chest pain, altered mental status, abdominal pain women, abdominal pain men, vaginal bleeding, weakness, fever, dyspnea, syncope, headache, dizziness, GI bleed, back pain, seizure, CVA, palpatations, mental health, musculoskeletal)? @ -Differential Weakness: Hypoglycemia, shock, sepsis, hyponatremia, anemia, infection, AK, ETOH, adverse medicine reaction, overdose, stroke, this is not meant to be an all-inclusive list. EKG interpreted by me (3pts min.). @ -As above X-rays interpreted by me (1pt min.). @ -None done CT interpreted by me (1pt min.). @ -None done U/S interpreted by me (1pt. min.). @ -Ultrasound showed sludge in the gallbladder. Ultrasound also showed an 8 x 5 x 8 cm liver mass What testing was considered but not performed or refused? (CT, X-rays, U/S, labs)? Why? @ -None What meds were considered but not given or refused? Why? @ -None Did you discuss the management of the patient with other professionals (professionals i.e. [facility], [employer], lab, RT, psych nurse, director social welfare, signal mechanic, teacher, canine enforcement officer, case packer)? Give summary @ -I spoke with sound physician's he agreed to admit the patient Was smoking cessation discussed for >3mins.? @ -No Was critical care preformed (if so, how long)? @ -No Were there social determinants of health that impacted care today? How? (Homelessness, low income, unemployed, alcoholism, drug addiction, transportation, low edu. Level, literacy, decrease access to med. care, fdc, rehab)? @ -No Was there de-escalation of care discussed even if they declined (Discuss DNR or withdrawal of care, Hospice)? DNR status @ -No What co-morbidities impacted this encounter? (DM, HTN, Smoking, COPD, CAD, Cancer, CVA, ARF, Chemo, Hep., AIDS, mental health diagnosis, sleep apnea, morbid obesity)? @ -None Was patient admitted / discharged? Hospital course, mention meds given and route, prescriptions, significant lab abnormalities, going to OR and other pertinent info. @ -Patient had lab work done an ultrasound done and showed a low sodium also ultrasound showed liver mass patient will have an oncology consultation spoke with sound physician's he agreed to admit the patient. Undiagnosed new problem with uncertain prognosis? @ -No Drug Therapy requiring intensive monitoring for toxicity (Heparin, Nitro, Insulin, Cardizem)? @ -No Were any procedures done? @ -No Diagnosis/symptom? @ -Generalized weakness Acute, or Chronic, or Acute on Chronic? @ -Acute Uncomplicated (without systemic symptoms) or Complicated (systemic symptoms)? @ -Uncomplicated Side effects of treatment? @ -No Exacerbation, Progression, or Severe Exacerbation? @ -No Poses a threat to life or bodily function? How? (Chest pain, USA, AK, pneumonia, PE, COPD, DKA, ARF, appy, cholecystitis, CVA, Diverticulitis, Homicidal, Suicidal, threat to staff... and all critical care pts) @ -No Diagnosis/symptom? @ -Hyponatremia Acute, or Chronic, or Acute on Chronic? @ -Acute Uncomplicated (without systemic symptoms) or Complicated (systemic symptoms)? @ -Uncomplicated Side effects of treatment? @ -none Exacerbation, Progression, or Severe Exacerbation] @ -no Poses a threat to life or bodily function? @ -no Diagnosis/symptom? @ -Liver mass Acute, or Chronic, or Acute on Chronic? @ -Acute Uncomplicated (without systemic symptoms) or Complicated (systemic symptoms)? @ -Complicated Side effects of treatment? @ -none Exacerbation, Progression, or Severe Exacerbation] @ -no Poses a threat to life or bodily function? @ -Yes this could be metastatic disease - Lab Data Result diagrams: 09/12/22 17:04 09/12/22 17:04 Lab Results 09/12/22 09/12/22 09/12/22 Range/Units 17:04 17:04 17:04 WBC 8.2 (3.8-10.6) k/uL RBC 4.69 (4.30-5.90) m/uL Hgb 12.2 L (13.0-17.5) gm/dL Hct 38.6 L (39.0-53.0) % MCV 82.3 (80.0-100.0) fL MCH 26.0 (25.0-35.0) pg MCHC 31.6 (31.0-37.0) g/dL RDW 16.5 H (11.5-15.5) % Plt Count 371 (150-450) k/uL MPV 8.1 Neutrophils % 81 % Lymphocytes % 6 % Monocytes % 12 % Eosinophils % 0 % Basophils % 0 % Neutrophils # 6.6 (1.3-7.7) k/uL Lymphocytes # 0.5 L (1.0-4.8) k/uL Monocytes # 1.0 (0-1.0) k/uL Eosinophils # 0.0 (0-0.7) k/uL Basophils # 0.0 (0-0.2) k/uL Hypochromasia Slight Anisocytosis Slight PT (9.0-12.0) sec INR (<1.2) APTT (22.0-30.0) sec Sodium 128 L (137-145) mmol/L Potassium 4.1 (3.5-5.1) mmol/L Chloride 87 L (98-107) mmol/L Carbon Dioxide 36 H (22-30) mmol/L Anion Gap 5 mmol/L BUN 14 (9-20) mg/dL Creatinine 0.37 L (0.66-1.25) mg/dL Est GFR (CKD-EPI)AfAm >90 (>60 ml/min/1.73 sqM) Est GFR (CKD-EPI)NonAf >90 (>60 ml/min/1.73 sqM) Glucose 88 (74-99) mg/dL Plasma Lactic Acid Ciro 1.7 (0.7-2.0) mmol/L Calcium 7.9 L (8.4-10.2) mg/dL Magnesium 1.8 (1.6-2.3) mg/dL Total Bilirubin 1.6 H (0.2-1.3) mg/dL AST 109 H (17-59) U/L ALT 42 (4-49) U/L Alkaline Phosphatase 350 H (38-126) U/L Troponin I (0.000-0.034) ng/mL NT-Pro-B Natriuret Pep pg/mL Total Protein 5.6 L (6.3-8.2) g/dL Albumin 2.7 L (3.5-5.0) g/dL Urine Color Urine Appearance (Clear) Urine pH (5.0-8.0) Ur Specific [place] (1.001-1.035) Urine Protein (Negative) Urine Glucose (UA) (Negative) Urine Ketones (Negative) Urine Blood (Negative) Urine Nitrite (Negative) Urine Bilirubin (Negative) Urine Urobilinogen (<2.0) mg/dL Ur Leukocyte Esterase (Negative) Urine RBC (0-5) /hpf Ur Squamous Epith Cells (0-4) /hpf Urine Bacteria (None) /hpf Urine Mucus (None) /hpf 09/12/22 09/12/22 09/12/22 Range/Units 17:04 17:04 17:04 WBC (3.8-10.6) k/uL RBC (4.30-5.90) m/uL Hgb (13.0-17.5) gm/dL Hct (39.0-53.0) % MCV (80.0-100.0) fL MCH (25.0-35.0) pg MCHC (31.0-37.0) g/dL RDW (11.5-15.5) % Plt Count (150-450) k/uL MPV Neutrophils % % Lymphocytes % % Monocytes % % Eosinophils % % Basophils % % Neutrophils # (1.3-7.7) k/uL Lymphocytes # (1.0-4.8) k/uL Monocytes # (0-1.0) k/uL Eosinophils # (0-0.7) k/uL Basophils # (0-0.2) k/uL Hypochromasia Anisocytosis PT (9.0-12.0) sec INR (<1.2) APTT (22.0-30.0) sec Sodium (137-145) mmol/L Potassium (3.5-5.1) mmol/L Chloride (98-107) mmol/L Carbon Dioxide (22-30) mmol/L Anion Gap mmol/L BUN (9-20) mg/dL Creatinine (0.66-1.25) mg/dL Est GFR (CKD-EPI)AfAm (>60 ml/min/1.73 sqM) Est GFR (CKD-EPI)NonAf (>60 ml/min/1.73 sqM) Glucose (74-99) mg/dL Plasma Lactic Acid Ciro (0.7-2.0) mmol/L Calcium (8.4-10.2) mg/dL Magnesium (1.6-2.3) mg/dL Total Bilirubin (0.2-1.3) mg/dL AST (17-59) U/L ALT (4-49) U/L Alkaline Phosphatase (38-126) U/L Troponin I <0.012 (0.000-0.034) ng/mL NT-Pro-B Natriuret Pep 312 pg/mL Total Protein (6.3-8.2) g/dL Albumin (3.5-5.0) g/dL Urine Color Dark Yellow Urine Appearance Turbid (Clear) Urine pH 6.5 (5.0-8.0) Ur Specific [place] 1.025 (1.001-1.035) Urine Protein 1+ H (Negative) Urine Glucose (UA) Negative (Negative) Urine Ketones 1+ H (Negative) Urine Blood Moderate H (Negative) Urine Nitrite Negative (Negative) Urine Bilirubin 1+ H (Negative) Urine Urobilinogen >12.0 (<2.0) mg/dL Ur Leukocyte Esterase Small H (Negative) Urine RBC 5 (0-5) /hpf Ur Squamous Epith Cells <1 (0-4) /hpf Urine Bacteria Rare H (None) /hpf Urine Mucus Rare H (None) /hpf 09/12/22 Range/Units 17:55 WBC (3.8-10.6) k/uL RBC (4.30-5.90) m/uL Hgb (13.0-17.5) gm/dL Hct (39.0-53.0) % MCV (80.0-100.0) fL MCH (25.0-35.0) pg MCHC (31.0-37.0) g/dL RDW (11.5-15.5) % Plt Count (150-450) k/uL MPV Neutrophils % % Lymphocytes % % Monocytes % % Eosinophils % % Basophils % % Neutrophils # (1.3-7.7) k/uL Lymphocytes # (1.0-4.8) k/uL Monocytes # (0-1.0) k/uL Eosinophils # (0-0.7) k/uL Basophils # (0-0.2) k/uL Hypochromasia Anisocytosis PT 12.3 H (9.0-12.0) sec INR 1.2 H (<1.2) APTT 26.8 (22.0-30.0) sec Sodium (137-145) mmol/L Potassium (3.5-5.1) mmol/L Chloride (98-107) mmol/L Carbon Dioxide (22-30) mmol/L Anion Gap mmol/L BUN (9-20) mg/dL Creatinine (0.66-1.25) mg/dL Est GFR (CKD-EPI)AfAm (>60 ml/min/1.73 sqM) Est GFR (CKD-EPI)NonAf (>60 ml/min/1.73 sqM) Glucose (74-99) mg/dL Plasma Lactic Acid Ciro (0.7-2.0) mmol/L Calcium (8.4-10.2) mg/dL Magnesium (1.6-2.3) mg/dL Total Bilirubin (0.2-1.3) mg/dL AST (17-59) U/L ALT (4-49) U/L Alkaline Phosphatase (38-126) U/L Troponin I (0.000-0.034) ng/mL NT-Pro-B Natriuret Pep pg/mL Total Protein (6.3-8.2) g/dL Albumin (3.5-5.0) g/dL Urine Color Urine Appearance (Clear) Urine pH (5.0-8.0) Ur Specific [place] (1.001-1.035) Urine Protein (Negative) Urine Glucose (UA) (Negative) Urine Ketones (Negative) Urine Blood (Negative) Urine Nitrite (Negative) Urine Bilirubin (Negative) Urine Urobilinogen (<2.0) mg/dL Ur Leukocyte Esterase (Negative) Urine RBC (0-5) /hpf Ur Squamous Epith Cells (0-4) /hpf Urine Bacteria (None) /hpf Urine Mucus (None) /hpf Disposition Clinical Impression: Generalized weakness, Hyponatremia, Liver mass Disposition: ADMITTED IP TO THIS HOSP Referrals: Jamison Recinos MD [Primary Care Provider] - 1-2 days Time of Disposition: 21:45
[2022-09-12 17:34] LABS: Anisocytosis Slight; Basophils % (A) 0 %; Eosinophils % (A) 0 %; HCT 38.6 % (39.0-53.0); HGB 12.2 gm/dL (13.0-17.5); Hypochromasia Slight; Lymphocytes # (A) 0.5 k/uL (1.0-4.8); Lymphocytes % (A) 6 %; MCHC 31.6 g/dL (31.0-37.0); MCV 82.3 fL (80.0-100.0); Mean Platelet Volume 8.1; Monocytes % (A) 12 %; Neutrophils # (A) 6.6 k/uL (1.3-7.7); Neutrophils % (A) 81 %; Platelet Count 371 k/uL (150-450); RBC 4.69 m/uL (4.30-5.90); RDW 16.5 % (11.5-15.5); WBC 8.2 k/uL (3.8-10.6)
[2022-09-12 17:36] LABS: Appearance,Urine Turbid (Clear); Bacteria,Urine Rare /hpf; Bilirubin,Urine 1+ (Negative); Blood,Urine Moderate (Negative); Color,Urine Dark Yellow; Glucose,Urine (UA) Negative (Negative); Ketones,Urine 1+ (Negative); Leukocyte Esterase,Urine Small (Negative); Mucus,Urine Rare /hpf; Nitrite,Urine Negative (Negative); PH, Urine 6.5 (5.0-8.0); Protein,Urine 1+ (Negative); RBC,Urine 5 /hpf (0-5); Specific Gravity,Urine 1.025 (1.001-1.035); Squamous Epithelial Cell,Urine <1 /hpf (0-4); Urobilinogen,Urine >12.0 mg/dL (<2.0)
[2022-09-12 17:49] LABS: ALT 42 U/L (4-49); AST 109 U/L (17-59); African American GFR (CKD) >90 (>60 ml/min/1.73 sqM); Albumin 2.7 g/dL (3.5-5.0); Alkaline Phosphatase 350 U/L (38-126); Anion Gap 5 mmol/L; Blood Urea Nitrogen 14 mg/dL (9-20); Calcium 7.9 mg/dL (8.4-10.2); Carbon Dioxide 36 mmol/L (22-30); Chloride 87 mmol/L (98-107); Glucose 88 mg/dL (74-99); Magnesium 1.8 mg/dL (1.6-2.3); Non-African American GFR(CKD) >90 (>60 ml/min/1.73 sqM); Potassium 4.1 mmol/L (3.5-5.1); Sodium 128 mmol/L (137-145); Total Bilirubin 1.6 mg/dL (0.2-1.3); Total Protein 5.6 g/dL (6.3-8.2)
--- NOTE | 2022-09-12 17:55 | XR ---
EXAMINATION TYPE: XR chest 2V DATE OF EXAM: 09/12/2022 5:29 PM COMPARISON: Chest radiographs from 09/04/2022. TECHNIQUE: XR chest 2V Frontal and lateral views of the chest. CLINICAL INDICATION:Male, 86 years old with history of Weakness; FINDINGS: Lungs/Pleura: Prominent interstitial lung markings are seen scattered throughout the lungs. No eviden ce of focal consolidation, pneumothorax or pleural effusion. Pulmonary vascularity: Unremarkable. Heart/mediastinum: Cardiomediastinal silhouette is unremarkable. Musculoskeletal: Degenerative changes of the shoulder joints. IMPRESSION: Chronic changes without acute pulmonary process. No significant change from prior.
[2022-09-12 18:36] LABS: INR 1.2 (<1.2); Partial Thromboplastin Time 26.8 sec (22.0-30.0); Prothrombin Time 12.3 sec (9.0-12.0)
--- NOTE | 2022-09-12 19:58 | US ---
EXAMINATION TYPE: US gallbladder DATE OF EXAM: 09/12/2022 COMPARISON: PET 01/30/2022 CLINICAL INDICATION: Male, 86 years old with history of Right upper quadrant abdominal pain; RUQ pain "for a while" TECHNIQUE: Multiple sonographic images of the right upper quadrant are obtained. FINDINGS: EXAM MEASUREMENTS: Liver Length: 20.4 cm Gallbladder Wall: Not seen CBD: 0.6 cm Right Kidney: 10.0 x 5.7 x 3.9 cm Pancreas: Hyperechoic focus with calcification and posterior shadowing seen in tail measuring 3.0 x 2.5 x 1.9cm Liver: Multiple heterogenous masses visualized. Largest = 8.2 x 7.6 x 8.1cm Gallbladder: Not sure if visualized. Pt states he has not had a cholecystectomy. If visualized, it i s full of sludge. Evidence for sonographic Ray's sign: No CBD: wnl Right Kidney: wnl IMPRESSION: 1. What could represent the gallbladder demonstrates diffuse increased echoes and could represent sl udge. Consider MRI MRCP for further evaluation of the biliary system. 2. Heterogenous appearance to the liver with multiple masslike areas, given patient's history of can cer further workup with cross-sectional imaging consider MRI with IV contrast liver mass protocol is recommended.
[2022-09-12] MEDS ORDERED: SODIUM CHLORIDE 0.9% 1,000 ML IV ONE (21:56)
[2022-09-13] MEDS ORDERED: HYDROcodone/APAP 5-325MG 1 EACH TAB PO PRN (00:07)
--- NOTE | 2022-09-13 00:07 | P.HPIM ---
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 Then she was supplement by the patient's son and [id number] at the bedside. The patient states that he has been eating and drinking less over the past sev eral months to 2 increased coughing and choking sensation with food. He reports that this is gradually worsened despite currently being in remission. He states that other result he has gradually lost weight and feels that he does not have the energy to participate in any of his ADLs and has difficulty even standing up. He also reports right upper quadrant abdominal pain, especially brought on with deep breathing or if he attempts to stand up. Denies nausea, vomiting, diarrhea. Patient also reports gradually worsening bilateral lower extremity pitting edema despite decreased oral intake and feeling as though he is dehydrated most of the time. In the emergency room, gallbladder ultrasound revealed gallbladder with findings consistent with sludge with multiple heterogeneous masses in the liver with largest being 8.2 x 7.6 x 8.1 cm. Chest x-ray revealed chronic changes without acute abnormalities. EKG had revealed normal sinus rhythm with left axis deviation and [address]/T-wave changes noted as reviewed by me. Laboratory evaluation was remarkable for sodium 128 (previously 129 on 09/04/22), chloride 87, CO2 36, lactic acid 1.7, total bilirubin 0.6, AST 109, alkaline ph osphatase 350, troponin less than 0.012, proBNP 312, and albumin 2.7. ED documentation reviewed and case discussed with ED provider. Review of systems: Pertinent positives and negatives as discussed in HPI, a complete review of systems was performed and all other systems are negative. Physical examination: Vital signs reviewed General: non toxic, no distress, appears at stated age, normal weight Derm: no unusual rashes/lesions, warm Head: atraumatic, normocephalic, symmetric Eyes: EOMI, no lid lag, anicteric sclera, pupils equal round reactive to light ENT: Nose and ears atraumatic Neck: No cervical lymphadenopathy, trachea midline, supple Mouth: no lip lesion, mucus membranes dry Cardiovascular: S1S2 reg, no murmur, positive dorsalis pedis pulse bilateral, 2+ bilateral lower extremity pitting edema Lungs: CTA bilateral, no rhonchi, no rales, no accessory muscle use Abdominal: soft, right upper quadrant tenderness, no guarding Ext: muscle strength 3 out of 5 in all 4 extremities grossly, no gross muscle at rophy, no contractures, Neuro: CN II-XI grossly intact, no gross focal neuro deficits Psych: Alert, oriented, appropriate affect Assessment: Generalized weakness, suspect secondary to malnutrition with decreased oral intake due to aspiration Hypochloremic hyponatremia, suspect secondary to poor oral intake Multiple hepatic masses Bilateral lower extremity edema, suspect secondary to hypoalbuminemia Imaging: In the emergency room, gallbladder ultrasound revealed gallbladder with findings consistent with sludge with multiple heterogeneous masses in the liver with largest being 8.2 x 7.6 x 8.1 cm. Chest x-ray revealed chronic changes without acute abnormalities. EKG had revealed normal sinus rhythm with left axis deviation and [address]/T-wave changes noted as reviewed by me. Data Review: Laboratory evaluation was remarkable for sodium 128 (previously 129 on 09/04/22), chloride 87, CO2 36, lactic acid 1.7, total bilirubin 0.6, AST 109, alkaline phosphatase 350, troponin less than 0.012, proBNP 312, and albumin 2.7. Plan: Physical therapy and speech therapy consult Oncology consulted in light of new hepatic masses C/w IVFs with NS 75 mL/hr Monitor BMP DVT prophylaxis: Lovenox The patient is admitted with an anticipated greater than 2 midnight stay for evaluation of generalized weakness CODE STATUS: Full Code Discussed with: Patient, son, [id number] Anticipated discharge place: Home Past Medical History Past Medical History: Cancer, Hypertension Additional Past Medical History / Comment(s): TONGUE CANCER History of Any Multi-Drug Resistant Organisms: None Reported Past Surgical History: Appendectomy, Back Surgery, Orthopedic Surgery, Tonsillectomy Additional Past Surgical History / Comment(s): RIGHT SHOULDER SURG. Past Anesthesia/Blood Transfusion Reactions: No Reported Reaction Past Psychological History: No Psychological Hx Reported Smoking Status: Never smoker Past Alcohol Use History: None Reported Past Drug Use History: None Reported - Past Family History Mother Family Medical History: Hyperlipidemia Medications and Allergies Home Medications Medication Instructions Recorded Confirmed Type Aspirin 81 mg PO DAILY 02/15/21 09/12/22 History Indapamide 1.25 mg PO DAILY 02/15/21 09/12/22 History Pravastatin Sodium [Pravachol] 40 mg PO HS 02/15/21 09/12/22 History dilTIAZem HCL [dilTIAZem HCL 24Hr 240 mg PO HS 02/15/21 09/12/22 History ER (Xr)] Multivitamins, Thera [Multivitamin 1 tab PO DAILY 02/12/22 09/12/22 History (formulary)] Omeprazole 20 mg PO DAILY 02/12/22 09/12/22 History Vit C/E/Zn/Coppr/Lutein/Zeaxan 1 cap PO BID 02/12/22 09/12/22 History [Preservision Areds 2 Softgel] Docusate [Colace] 100 mg PO DAILY 09/04/22 09/12/22 History Furosemide [Lasix] 20 mg PO DAILY 09/04/22 09/12/22 History HYDROcodone/APAP 5-325MG [[place] 1 tab PO Q6HR PRN 09/04/22 09/12/22 History 5-325] Allergies Allergy/AdvReac Type Severity Reaction Status Date / Time cinnamon Allergy Anaphylaxis Verified 09/12/22 20:26 Penicillins Allergy Rash/Hives Verified 09/12/22 20:26 Physical Exam Vitals: Vital Signs Temp Pulse Pulse Resp BP Pulse Ox 09/12/22 23:32 81 20 128/77 98 09/12/22 20:37 89 16 129/78 96 09/12/22 19:07 91 18 129/82 97 09/12/22 16:41 98 09/12/22 16:11 97.3 F L 98 20 124/80 96 Intake and Output 09/12/22 09/12/22 09/13/22 14:59 22:59 06:59 Other: Weight 63.503 kg Results CBC & Chem 7: 09/12/22 17:04 09/12/22 17:04 Labs: Abnormal Lab Results - Last 24 Hours (Table) 09/12/22 09/12/22 09/12/22 Range/Units 17:04 17:04 17:04 Hgb 12.2 L (13.0-17.5) gm/dL Hct 38.6 L (39.0-53.0) % RDW 16.5 H (11.5-15.5) % Lymphocytes # 0.5 L (1.0-4.8) k/uL PT (9.0-12.0) sec INR (<1.2) Sodium 128 L (137-145) mmol/L Chloride 87 L (98-107) mmol/L Carbon Dioxide 36 H (22-30) mmol/L Creatinine 0.37 L (0.66-1.25) mg/dL Calcium 7.9 L (8.4-10.2) mg/dL Total Bilirubin 1.6 H (0.2-1.3) mg/dL AST 109 H (17-59) U/L Alkaline Phosphatase 350 H (38-126) U/L Total Protein 5.6 L (6.3-8.2) g/dL Albumin 2.7 L (3.5-5.0) g/dL Urine Protein 1+ H (Negative) Urine Ketones 1+ H (Negative) Urine Blood Moderate H (Negative) Urine Bilirubin 1+ H (Negative) Ur Leukocyte Esterase Small H (Negative) Urine Bacteria Rare H (None) /hpf Urine Mucus Rare H (None) /hpf 09/12/22 Range/Units 17:55 Hgb (13.0-17.5) gm/dL Hct (39.0-53.0) % RDW (11.5-15.5) % Lymphocytes # (1.0-4.8) k/uL PT 12.3 H (9.0-12.0) sec INR 1.2 H (<1.2) Sodium (137-145) mmol/L Chloride (98-107) mmol/L Carbon Dioxide (22-30) mmol/L Creatinine (0.66-1.25) mg/dL Calcium (8.4-10.2) mg/dL Total Bilirubin (0.2-1.3) mg/dL AST (17-59) U/L Alkaline Phosphatase (38-126) U/L Total Protein (6.3-8.2) g/dL Albumin (3.5-5.0) g/dL Urine Protein (Negative) Urine Ketones (Negative) Urine Blood (Negative) Urine Bilirubin (Negative) Ur Leukocyte Esterase (Negative) Urine Bacteria (None) /hpf Urine Mucus (None) /hpf
[2022-09-13] MEDS: DILTIAZEM CD 240 MG CAP.ER.24H PO SCH ×2 (00:36→20:53)
[2022-09-13] MEDS: ENOXAPARIN 40 MG/0.4 ML SYRINGE SQ SCH (07:42)
[2022-09-13] MEDS: ASPIRIN 81 MG PO SCH (07:42)
[2022-09-13] MEDS: MULTIVITAMINS, THERA 1 EACH TAB PO SCH (07:42)
[2022-09-13] MEDS: DOCUSATE 100 MG CAP PO SCH (07:42)
--- NOTE | 2022-09-13 11:38 | FL ---
INDICATION: Patient age:Male; 86 years old; Reason for study: r/o aspiration; PHH. COMPARISON: Modified barium swallow 06/01/2021 TECHNIQUE: Utilizing real-time video recording fluoroscopy, multiple images were obtained after admin istration of various consistencies of barium contrast. A speech pathologist was present throughout the exam. Fluoroscopic time: 1 minute 29 seconds Fluoroscopic images: None saved Total DAP: Not able to obtain due to technical difficulties. FINDINGS: Consistencies administered: Pudding, honey, nectar thick, and thin. During the oral phase there is n ormal formation of food bolus with normal initiation of swallow with all consistencies. Piecemeal swa llowing with all consistencies. Significant vallecular and piriform sinus retention with all consistencies. Silent tracheal aspiratio n with all consistencies. IMPRESSION: 1. Silent tracheal aspiration with all consistencies. 2. Significant vallecular and piriform sinus retention with all consistencies. Please see dedicated speech pathology report for additional information.
--- NOTE | 2022-09-13 12:06 | P.PN ---
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 In the emergency room, gallbladder ultrasound revealed gallbladder with findings consistent with sludge with multiple heterogeneous masses in the liver with largest being 8.2 x 7.6 x 8.1 cm. Chest x-ray revealed chronic changes without acute abnormalities. EKG had revealed normal sinus rhythm with left axis deviation and [address]/T- wave changes noted as reviewed by me. Laboratory evaluation was remarkable for sodium 128 (previously 129 on 09/04/22), chloride 87, CO2 36, lactic acid 1.7, total bilirubin 0.6, AST 109, alkaline phosphatase 350, troponin less than 0.012, proBNP 312, and albumin 2.7. Oncology consulted. On IV fluids. Subjective: Patient seen and examined at bedside. No acute events overnight. Denies any new complaints. Pertinent positives and negatives as discussed above, a complete review of systems was performed and all other systems are negative. Vitals Signs Reviewed. General: non toxic, no distress, appears at stated age, normal weight Derm: no unusual rashes/lesions, warm Head: atraumatic, normocephalic, symmetric Eyes: EOMI, no lid lag, anicteric sclera, pupils equal round reactive to light ENT: Nose and ears atraumatic Neck: No cervical lymphadenopathy, trachea midline, supple Mouth: no lip lesion, mucus membranes dry Cardiovascular: S1S2 reg, no murmur, positive dorsalis pedis pulse bilateral, 2+ bilateral lower extremity pitting edema Lungs: CTA bilateral, no rhonchi, no rales, no accessory muscle use Abdominal: soft, right upper quadrant tenderness, no guarding Ext: muscle strength 3 out of 5 in all 4 extremities grossly, no gross muscle atrophy, no contractures, Neuro: CN II-XI grossly intact, no gross focal neuro deficits Psych: Alert, oriented, appropriate affect Data Reviewed Today: Pertinent Labs: No new labs Imaging: Modified barium swallow shows silent tracheal aspiration with all c onsistencies, significant dysphagia Assessment and Plan: Active: Generalized weakness, suspect secondary to malnutrition with decreased oral intake due to aspiration Hypochloremic hyponatremia, suspect secondary to poor oral intake Multiple hepatic masses History of squamous cell carcinoma of tongue Bilateral lower extremity edema, suspect secondary to hypoalbuminemia -Oncology consulted -Further goals of care discussion -Continue normal saline at 75 mL an hour -Currently nothing by mouth, pending speech therapy recommendations with regards to diet -In the past, patient did have PEG tube Chronic: Hypertension HLD DVT ppx: Lovenox Code status: full code Anticipated discharge place: pending clinical course Anticipated discharge time: pending clinical course Objective - Vital Signs Vital signs: Vital Signs Temp 97.9 F 09/13/22 07:00 Pulse 82 09/13/22 07:00 Resp 16 09/13/22 07:00 BP 121/70 09/13/22 07:00 Pulse Ox 96 09/13/22 07:00 FiO2 Intake & Output 09/12/22 09/13/22 09/13/22 18:59 06:59 18:59 Output Total 200 Balance -200 Weight 63.503 kg 63.503 kg Output: Urine 200 Other: Voiding Method Urinal Urinal - Labs CBC & Chem 7: 09/12/22 17:04 09/12/22 17:04 Labs: Abnormal Lab Results - Last 24 Hours (Table) 09/12/22 09/12/22 09/12/22 Range/Units 17:04 17:04 17:04 Hgb 12.2 L (13.0-17.5) gm/dL Hct 38.6 L (39.0-53.0) % RDW 16.5 H (11.5-15.5) % Lymphocytes # 0.5 L (1.0-4.8) k/uL PT (9.0-12.0) sec INR (<1.2) Sodium 128 L (137-145) mmol/L Chloride 87 L (98-107) mmol/L Carbon Dioxide 36 H (22-30) mmol/L Creatinine 0.37 L (0.66-1.25) mg/dL Calcium 7.9 L (8.4-10.2) mg/dL Total Bilirubin 1.6 H (0.2-1.3) mg/dL AST 109 H (17-59) U/L Alkaline Phosphatase 350 H (38-126) U/L Total Protein 5.6 L (6.3-8.2) g/dL Albumin 2.7 L (3.5-5.0) g/dL Urine Protein 1+ H (Negative) Urine Ketones 1+ H (Negative) Urine Blood Moderate H (Negative) Urine Bilirubin 1+ H (Negative) Ur Leukocyte Esterase Small H (Negative) Urine Bacteria Rare H (None) /hpf Urine Mucus Rare H (None) /hpf 09/12/22 Range/Units 17:55 Hgb (13.0-17.5) gm/dL Hct (39.0-53.0) % RDW (11.5-15.5) % Lymphocytes # (1.0-4.8) k/uL PT 12.3 H (9.0-12.0) sec INR 1.2 H (<1.2) Sodium (137-145) mmol/L Chloride (98-107) mmol/L Carbon Dioxide (22-30) mmol/L Creatinine (0.66-1.25) mg/dL Calcium (8.4-10.2) mg/dL Total Bilirubin (0.2-1.3) mg/dL AST (17-59) U/L Alkaline Phosphatase (38-126) U/L Total Protein (6.3-8.2) g/dL Albumin (3.5-5.0) g/dL Urine Protein (Negative) Urine Ketones (Negative) Urine Blood (Negative) Urine Bilirubin (Negative) Ur Leukocyte Esterase (Negative) Urine Bacteria (None) /hpf Urine Mucus (None) /hpf
[2022-09-13 13:33] VITALS: BMI 20.7
--- NOTE | 2022-09-13 15:45 | P.CONS ---
History of Present Illness - Reason for Consult Consult date: 09/13/22 Liver mass, history of squamous cell carcinoma of the tongue Requesting physician: Jayden Vazquez - Chief Complaint Abdominal pain, weakness - History of Present Illness Mr. Cantor is a very pleasant patient of Dr. Bjorn Jefferson who initially presented with progressive dysphagia x one year, he did not seek treatment initially because of taking care of his . PCP assessed patient, sent to Dr. 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 He was started on chemoradiation, completed 04/17/2021. He did well until February 2022 when he developed back pain, L5 biopsied [facility], unfortunately metastatic disease. He was treated with radiation. He was last seen by Dr. Jefferson 07/10/22, CT showed stable bone lesions, question about possible liver metastases, biopsy was offered, patient did not want a biopsy at that time, he agreed to close monitoring, PET scan scheduled for this month. When seen today patient states he came to the hospital because of progressive weakness, started about 4-5 weeks ago. He is also noticed dysphagia as well as voice changes, right upper quadrant abdominal pain started in the last few days. He denies fevers, nausea or vomiting, appetite is poor though, no congestion, cough, chest pain, abdominal distention, acute changes in bowel or bladder habits. Vital signs are stable, CBC adequate, elevated bilirubin at 1.6, he failed swallow eval. 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 History of Any Multi-Drug Resistant Organisms: None Reported Past Surgical History: Appendectomy, Back Surgery, Orthopedic Surgery, Tonsillectomy Additional Past Surgical History / Comment(s): RIGHT SHOULDER SURG. Past Anesthesia/Blood Transfusion Reactions: No Reported Reaction Past Psychological History: No Psychological Hx Reported Smoking Status: Never smoker Past Alcohol Use History: None Reported Past Drug Use History: None Reported - Past Family History Mother Family Medical History: Hyperlipidemia Medications and Allergies Home Medications Medication Instructions Recorded Confirmed Type Aspirin 81 mg PO DAILY 02/15/21 09/12/22 History Indapamide 1.25 mg PO DAILY 02/15/21 09/12/22 History Pravastatin Sodium [Pravachol] 40 mg PO HS 02/15/21 09/12/22 History dilTIAZem HCL [dilTIAZem HCL 24Hr 240 mg PO HS 02/15/21 09/12/22 History ER (Xr)] Multivitamins, Thera [Multivitamin 1 tab PO DAILY 02/12/22 09/12/22 History (formulary)] Omeprazole 20 mg PO DAILY 02/12/22 09/12/22 History Vit C/E/Zn/Coppr/Lutein/Zeaxan 1 cap PO BID 02/12/22 09/12/22 History [Preservision Areds 2 Softgel] Docusate [Colace] 100 mg PO DAILY 09/04/22 09/12/22 History Furosemide [Lasix] 20 mg PO DAILY 09/04/22 09/12/22 History HYDROcodone/APAP 5-325MG [Lilly 1 tab PO Q6HR PRN 09/04/22 09/12/22 History 5-325] Allergies Allergy/AdvReac Type Severity Reaction Status Date / Time cinnamon Allergy Anaphylaxis Verified 09/12/22 20:26 Penicillins Allergy Rash/Hives Verified 09/12/22 20:26 Physical Exam Vitals: Vital Signs Temp Pulse Pulse Resp BP BP Pulse Ox 09/13/22 07:00 97.9 F 82 16 121/70 96 09/13/22 00:01 97.4 F L 92 16 154/87 95 09/12/22 23:32 81 20 128/77 98 09/12/22 20:37 89 16 129/78 96 09/12/22 19:07 91 18 129/82 97 09/12/22 16:41 98 09/12/22 16:11 97.3 F L 98 20 124/80 96 Intake and Output 09/12/22 09/13/22 09/13/22 22:59 06:59 14:59 Output Total 200 Balance -200 Output: Urine 200 Other: Voiding Method Urinal Urinal Weight 63.503 kg 63.503 kg - Constitutional General appearance: cooperative, no acute distress, thin - EENT Slurred speech, hoarse voice Eyes: anicteric sclerae, EOMI ENT: hearing grossly normal - Neck Neck: no lymphadenopathy - Respiratory Respiratory: bilateral: CTA - Cardiovascular Rhythm: regular Heart sounds: normal: S1, S2 Abnormal Heart Sounds: no systolic murmur, no diastolic murmur, no rub, no S3 Gallop, no S4 Gallop, no click, no other leg Peripheral Edema: bilateral: None - Gastrointestinal General gastrointestinal: no absent bowel sounds, no decreased bowel sounds, no distended, no hepatomegaly, no hyperactive bowel sounds, no normal bowel sounds, no organomegaly, no rigid, no scaphoid, soft, no splenomegaly, tenderness, no umbilical hernia, no ventral hernia Localized gastrointestinal: tender: RUQ - Integumentary Integumentary: pale - Musculoskeletal Musculoskeletal: generalized weakness, strength equal bilaterally - Psychiatric Psychiatric: A&O x's 3, appropriate affect, intact judgment & insight Results CBC & Chem 7: 09/12/22 17:04 09/12/22 17:04 Labs: Abnormal Lab Results - Last 24 Hours (Table) 09/12/22 09/12/22 09/12/22 Range/Units 17:04 17:04 17:04 Hgb 12.2 L (13.0-17.5) gm/dL Hct 38.6 L (39.0-53.0) % RDW 16.5 H (11.5-15.5) % Lymphocytes # 0.5 L (1.0-4.8) k/uL PT (9.0-12.0) sec INR (<1.2) Sodium 128 L (137-145) mmol/L Chloride 87 L (98-107) mmol/L Carbon Dioxide 36 H (22-30) mmol/L Creatinine 0.37 L (0.66-1.25) mg/dL Calcium 7.9 L (8.4-10.2) mg/dL Total Bilirubin 1.6 H (0.2-1.3) mg/dL AST 109 H (17-59) U/L Alkaline Phosphatase 350 H (38-126) U/L Total Protein 5.6 L (6.3-8.2) g/dL Albumin 2.7 L (3.5-5.0) g/dL Urine Protein 1+ H (Negative) Urine Ketones 1+ H (Negative) Urine Blood Moderate H (Negative) Urine Bilirubin 1+ H (Negative) Ur Leukocyte Esterase Small H (Negative) Urine Bacteria Rare H (None) /hpf Urine Mucus Rare H (None) /hpf 09/12/22 Range/Units 17:55 Hgb (13.0-17.5) gm/dL Hct (39.0-53.0) % RDW (11.5-15.5) % Lymphocytes # (1.0-4.8) k/uL PT 12.3 H (9.0-12.0) sec INR 1.2 H (<1.2) Sodium (137-145) mmol/L Chloride (98-107) mmol/L Carbon Dioxide (22-30) mmol/L Creatinine (0.66-1.25) mg/dL Calcium (8.4-10.2) mg/dL Total Bilirubin (0.2-1.3) mg/dL AST (17-59) U/L Alkaline Phosphatase (38-126) U/L Total Protein (6.3-8.2) g/dL Albumin (3.5-5.0) g/dL Urine Protein (Negative) Urine Ketones (Negative) Urine Blood (Negative) Urine Bilirubin (Negative) Ur Leukocyte Esterase (Negative) Urine Bacteria (None) /hpf Urine Mucus (None) /hpf Comments: Swallowing eval report reviewed US - abdomen: report reviewed Assessment and Plan (1) Generalized weakness Current Visit: Yes Status: Acute Priority: High Code(s): R53.1 - WEAKNESS SNOMED Code(s): 95131960 (2) Squamous cell cancer of tongue Current Visit: Yes Status: Chronic Priority: High Code(s): C02.9 - MALIGNANT NEOPLASM OF TONGUE, UNSPECIFIED SNOMED Code(s): 270406616 (3) Liver mass Current Visit: Yes Status: Acute Priority: High Code(s): R16.0 - HEPATOMEGALY, NOT ELSEWHERE CLASSIFIED SNOMED Code(s): 798427314 (4) Metastatic cancer Current Visit: Yes Status: Acute Priority: High Code(s): C79.9 - SECONDARY MALIGNANT NEOPLASM OF UNSPECIFIED SITE SNOMED Code(s): 964728202 Plan: Weakness -Weakness multifactorial including poor appetite/oral intake and metastatic disease. History of squamous cell carcinoma of the tongue, bone metastases, July 2022 suspicions for liver mass -Patient was aware of abnormalities in the liver, opted for close observation. Scan is planned sometime this month. -Discussed with patient the ultrasound findings and the concerning liver lesions. Recommend biopsy, if patient wants to pursue treatment. -CT of the chest and neck ordered (abdomen added as patient's family is wanting to know size of liver lesions). This will help to evaluate if there is any further metastatic disease in the chest. Neck being assessed because of symptoms and if any palliative type of measures need to be taken for symptoms. All of the above was discussed with the patient. He would like to talk to his family before deciding if he wants to pursue a liver biopsy. We also encouraged patient to think about if he wants to pursue treatment. Patient was told that his presentation is most consistent with stage IV disease, treatable but, not curable. Intent of treatment as always to palliate symptoms, improve quality of life and extended quantity of life. He reports that he struggled with the initial chemo/radiation and does not think he would like to pursue any treatment. Patient asked about prognosis if he opts to not do any treatment, anticipate 3 months but, unfortunately he could be sooner based on how fast the disease progresses. All of patient's questions were answered to his farrahactio n. Doctor attests: I performed a history and physical examination of this patient, developed impression and plan of care. Discussed with dictator. I agree with dictators note, documented as a scribe. Time with Patient: Greater than 30 (Counseling and coordinating care)
--- NOTE | 2022-09-13 17:19 | CT ---
EXAMINATION TYPE: CT chest abdomen w con CT DLP: combined dlp 1164.2 mGycm, Automated exposure control for dose reduction was used. DATE OF EXAM: 09/13/2022 4:49 PM COMPARISON: 01/18/2021 CLINICAL INDICATION:Male, 86 years old with history of liver lesions, liver lesions Technique: Multiple axial images of the chest, abdomen, and pelvis were obtained. Two-dimensional cor onal and sagittal reconstructions were obtained. Contrast used:50 cc mL of Isovue 300 with IV Contrast, Oral contrast used: without Oral Contrast Findings: CHEST: LUNGS/ PLEURA: There are trace bilateral pleural effusions. Pleural calcifications are present with s ome nodular changes. Examples include: * Right upper lobe 5 mm image 31 series 2.New from prior. * Right upper lobe 4 mm image 23. New from prior. * Right lower lobe 2 mm image 28. New from prior. * Right upper lobe 7 mm image 37 stable from 01/18/2021 Left intrafissural lymph node. No focal consolidation pneumothorax. AIRWAY: Patent and unremarkable. HEART: Size within normal limits. There is severe coronary artery atherosclerosis. Aortic valve leafl et calcifications. MEDIASTINUM: No gross evidence of adenopathy. VASCULATURE: No aortic aneurysm. The aortic arch is images mild atherosclerosis with the major vesse ls patent. MUSCULOSKELETAL: No acute osseous abnormalities. SOFT TISSUES/LYMPH NODES: Unremarkable. LOWER NECK: No significant findings. ABDOMEN: ABDOMEN LIVER: Is a nodular contour to liver. Scattered hepatic lesions seen throughout the liver examples in clude 7.9 cm the right hepatic lobe additional smaller at least 8 other lesions in the right hepatic lobe. There is another dominant large right lower lobe lesion also present measuring 12.1 x 4.7 cm. GALLBLADDER AND BILE DUCTS: Gallbladder is distended with thickened wall likely secondary to hepatic cirrhosis. PANCREAS: Unremarkable. SPLEEN: Unremarkable. ADRENAL GLANDS: Unremarkable. KIDNEYS AND URETERS: No evidence of hydronephrosis or renal calculus. r large left renal cyst measuri ng up to 14.0 x 13.0 cm. Left nonobstructing calculus measuring 7 mm. PELVIS BLADDER: Unremarkable REPRODUCTIVE: Unremarkable. ABDOMEN & PELVIS STOMACH AND BOWEL: No evidence of bowel obstruction. PERITONEUM: No evidence of pneumoperitoneum. No free fluid. VASCULATURE: No evidence of aortic aneurysm. MUSCULOSKELETAL: No acute osseous abnormalities LYMPH NODES: No gross evidence for lymphadenopathy. SOFT TISSUE/ABDOMINAL WALL: Unremarkable IMPRESSION: 1. Hepatic cirrhosis with multiple liver lesions concerning for hepatocellular carcinoma versus meta static disease felt to be less likely given the cirrhotic appearance of the liver. 2. Trace bilateral pleural effusions likely secondary to #1. 3. Few scattered pulmonary nodules are indeterminate could relate relate to metastatic disease from #1. 4. Large left renal cyst. 5. Nonobstructing left renal calculus. 6. Severe atherosclerosis of the arterial vasculature including the coronary arteries and aortic marquis ve leaflets.
--- NOTE | 2022-09-13 17:22 | CT ---
EXAMINATION TYPE: CT soft tissue neck w con CT DLP: combined dlp 1164.2 mGycm, Automated exposure control for dose reduction was used. DATE OF EXAM: 09/13/2022 4:49 PM COMPARISON: Barium swallow 09/12/2022. CLINICAL INDICATION:Male, 86 years old with history of dysphagia, speech changes, Hx Sq cell tongue; PHH, dysphagia TECHNIQUE: Standard enhanced CT of the neck. Axial sections with coronal and sagittal reformats were obtained. Contrast used:50 cc mL of Isovue 300 with IV Contrast, Oral contrast used: none. FINDINGS: Brain: Visualized portions are grossly unremarkable. Orbits: Unremarkable Sinuses: Grossly unremarkable. There is somewhat hazy appearance to all the soft tissues with paucity of fat. Spaces of the neck: High density material seen lining the hypopharynx and oropharynx likely represent ing oral contrast. The airway is patent. The tongue has irregular appearance which could correlate wi th prior surgical intervention history of mass. Musculoskeletal: No acute osseous pathology. Degenerative disc disease changes of the visualized spin e are present. Lymph nodes: Multiple nonenlarged lymph nodes are seen along both anterior chains of the neck. Vascular structures: Patent with atherosclerotic plaque of the internal carotid arteries at the bifur cation. Atherosclerosis of the intracranial internal carotid arteries on the left in the vertebral ar moira on the right. Thoracic Inlet/airway: Airway is patent. The lung apices are clear. Soft tissues/Thyroid: Thyroid and remainder of the soft tissues are unremarkable. Other: none. IMPRESSION 1. No definite evidence for abscess or significant abnormality, evaluation limited due to paucity of fat planes throughout the neck. The airway does appear patent. There is concern for neoplasia conside r pet/CT for localization.
[2022-09-13] MEDS: LACTATED RINGERS 1,000 ML IV SCH (19:13)
[2022-09-13] MEDS: PRAVASTATIN SODIUM 40 MG TAB PO SCH (20:54)
[2022-09-14 06:10] LABS: African American GFR (CKD) >90 (>60 ml/min/1.73 sqM); Anion Gap 8 mmol/L; Blood Urea Nitrogen 13 mg/dL (9-20); Calcium 7.7 mg/dL (8.4-10.2); Carbon Dioxide 30 mmol/L (22-30); Chloride 93 mmol/L (98-107); Glucose 65 mg/dL (74-99); Non-African American GFR(CKD) >90 (>60 ml/min/1.73 sqM); Potassium 3.9 mmol/L (3.5-5.1); Sodium 131 mmol/L (137-145)
--- NOTE | 2022-09-14 09:11 | CDI ---
Documentation Clarification Form Date: 09/14/2022 08:37:37 AM From: Rebecca Law RN CCDS Phone: [phone] Admit Date: 09/12/2022 09:59:00 PM Patient Name: Moisés Diaz Visit Number: [id number] Discharge Date: ATTENTION: The Clinical Documentation Specialists (CDI) and [facility] Coding Staff appreciate your assistance in clarifying documentation. Please respond to the clarification below the line at the bottom and electronically sign. The CDI & [facility] Coding staff will review the response and follow-up if needed. Please note: Queries are made part of the Legal Health Record. If you have any questions, please contact the author of this message via ITS. Dr. Cody Malagon The Registered Dietitian assessment on 09/13 indicates this patient meets criteria for Severe malnutrition. Based on this information and the findings below, is there an additional diagnosis that is clinically appropriate for this patient? History/Risk Factors: 86-year-old male presents to the ED with increasing weakness with decreased oral intake due to aspiration. 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 Clinical Indicators: RD Consult Assessment: The patient tolerates some foods but struggles to eat, swallow due to history of Cancer. Severe dysphagia Current BMI: 20.7kg; 5ft 9in Physical findings: Underweight stage II pressure injury to left buttock and stage I pressure injury to coccyx. Weight Loss: 27.215 kg 30% weight loss x 2 years due to cancer diagnosis and treatment. Estimated protein needs: Protein range 1.2 1.5 grams/kg; Estimated Protein 76 -95 grams/day. Estimated Fluid needs: 1ml/Kcal Estimated Fluid needs 1905 mls/day. Nutrition Goals: Weight gain, meeting 75% of estimated nutritional needs. Improved skin integrity. Treatment: Recommended nutritional support via Peg Tube Dietary Consult: See above Is there an additional diagnosis that is clinically appropriate for this patient? [ x ] Severe Protein-Calorie Malnutrition [ ] Other condition, please specify [ ] Unable to Determine (Template Last Revised: June 2020) MTDD
--- NOTE | 2022-09-14 09:27 | CDI ---
Documentation Clarification Form Date: 09/14/2022 09:12:49 AM From: Rebecca Law RN CCDS Phone: [phone] Admit Date: 09/12/2022 09:59:00 PM Patient Name: Moisés Diaz Visit Number: [id number] Discharge Date: ATTENTION: The Clinical Documentation Specialists (CDI) and [facility] Coding Staff appreciate your assistance in clarifying documentation. Please respond to the clarification below the line at the bottom and electronically sign. The CDI & [facility] Coding staff will review the response and follow-up if needed. Please note: Queries are made part of the Legal Health Record. If you have any questions, please contact the author of this message via ITS. Cody Brannon MD A stage I pressure ulcer is documented by Nursing, 09/13, Nursing pressure injury assessment. Based on this information and the findings below, is there an additional diagnosis that is clinically appropriate for this patient? History/Risk Factors: 86-year-old male presents to the ED with increasing weakness with decreased oral intake due to aspiration. 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 09/13, H&P Clinical Indicators: Location: Coccyx Wound description: Stage I Treatment: Absorbent Under pad, Check hourly and turn Q2 while in bed or sitting. Nutritional assessment. Is there an additional diagnosis that is clinically appropriate for this patient? [ x ] Coccyx Pressure Ulcer Stage 1 present on admission [ ] Other condition, please specify [ ] Unable to determine Clinical Definitions: Stage 1 Pressure Ulcer: intact skin, non-blanching redness of local area Stage 2 Pressure Ulcer: Partial thickness, loss of dermis, pink wound bed Stage 3 Pressure Ulcer: Full thickness tissue loss Stage 4 Pressure Ulcer: Full thickness tissue loss with exposed bone, tendon, or muscle. Unstageable pressure ulcer: Full thickness tissue loss in which the base of the ulcer is covered by slough (yellow, cosme, dunn, green or brown) and/or eschar (cosme, brown or black) in the wound bed. (Template Last Revised: June 2020) MTDD
--- NOTE | 2022-09-14 09:32 | CDI ---
Documentation Clarification Form Date: 09/14/2022 09:28:19 AM From: Rebecca Law RN CCDS Phone: [phone] Admit Date: 09/12/2022 09:59:00 PM Patient Name: Moisés Diaz Visit Number: [id number] Discharge Date: ATTENTION: The Clinical Documentation Specialists (CDI) and [facility] Coding Staff appreciate your assistance in clarifying documentation. Please respond to the clarification below the line at the bottom and electronically sign. The CDI & [facility] Coding staff will review the response and follow-up if needed. Please note: Queries are made part of the Legal Health Record. If you have any questions, please contact the author of this message via ITS. Dr. Cody Burk stage II this information and the findings below, is there an additional diagnosis that is clinically appropriate for this patient? History/Risk Factors: History/Risk Factors: 86-year-old male presents to the ED with increasing weakness with decreased oral intake due to aspiration. 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 09/13, H&P Clinical Indicators: Location: Left Buttock Wound description: Length 1.5cm, Width 0.5cm; Amy wound color: Erythema; Treatment: Absorbent Under pad, Check hourly and turn Q2 while in bed or sitting. Nutritional assessment. Is there an additional diagnosis that is clinically appropriate for this patient? [ x ] Left Buttock Pressure Ulcer Stage 2 present on admission [ ] Other condition, please specify [ ] Unable to determine Clinical Definitions: Stage 1 Pressure Ulcer: intact skin, non-blanching redness of local area Stage 2 Pressure Ulcer: Partial thickness, loss of dermis, pink wound bed Stage 3 Pressure Ulcer: Full thickness tissue loss Stage 4 Pressure Ulcer: Full thickness tissue loss with exposed bone, tendon, or muscle. Unstageable pressure ulcer: Full thickness tissue loss in which the base of the ulcer is covered by slough (yellow, cosme, dunn, green or brown) and/or eschar (cosme, brown or black) in the wound bed. (Template Last Revised: June 2020) MTDD
[2022-09-14] MEDS: ENOXAPARIN 40 MG/0.4 ML SYRINGE SQ SCH (09:50)
[2022-09-14] MEDS: DOCUSATE 100 MG CAP PO SCH (10:37)
[2022-09-14] MEDS: MULTIVITAMINS, THERA 1 EACH TAB PO SCH (10:37)
[2022-09-14] MEDS: ASPIRIN 81 MG PO SCH (10:37)
--- NOTE | 2022-09-14 12:31 | P.GSCN ---
History of Present Illness Consult date: 09/14/22 Reason for Consult: Malnutrition History of present illness: 86-year-old male known to our service. Patient underwent EGD with PEG tube placement February 2021. This was performed because of a diagnosis of tongue cancer. He underwent treatment and the PEG tube was later removed. Over the last week or 2 the patient had abdominal pain and also increasing dysphagia. He was admitted for dehydration and malnutrition. He is being evaluated by oncology. CAT scan performed showing liver masses and possible cirrhosis. 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 History of Any Multi-Drug Resistant Organisms: None Reported Past Surgical History: Appendectomy, Back Surgery, Orthopedic Surgery, Tonsillectomy Additional Past Surgical History / Comment(s): RIGHT SHOULDER SURG. Past Anesthesia/Blood Transfusion Reactions: No Reported Reaction Past Psychological History: No Psychological Hx Reported Smoking Status: Never smoker Past Alcohol Use History: None Reported Past Drug Use History: None Reported - Past Family History Mother Family Medical History: Hyperlipidemia Medications and Allergies Home Medications Medication Instructions Recorded Confirmed Type Aspirin 81 mg PO DAILY 02/15/21 09/12/22 History Indapamide 1.25 mg PO DAILY 02/15/21 09/12/22 History Pravastatin Sodium [Pravachol] 40 mg PO HS 02/15/21 09/12/22 History dilTIAZem HCL [dilTIAZem HCL 24Hr 240 mg PO HS 02/15/21 09/12/22 History ER (Xr)] Multivitamins, Thera [Multivitamin 1 tab PO DAILY 02/12/22 09/12/22 History (formulary)] Omeprazole 20 mg PO DAILY 02/12/22 09/12/22 History Vit C/E/Zn/Coppr/Lutein/Zeaxan 1 cap PO BID 02/12/22 09/12/22 History [Preservision Areds 2 Softgel] Docusate [Colace] 100 mg PO DAILY 09/04/22 09/12/22 History Furosemide [Lasix] 20 mg PO DAILY 09/04/22 09/12/22 History HYDROcodone/APAP 5-325MG [Douglas 1 tab PO Q6HR PRN 09/04/22 09/12/22 History 5-325] Allergies Allergy/AdvReac Type Severity Reaction Status Date / Time cinnamon Allergy Anaphylaxis Verified 09/12/22 20:26 Penicillins Allergy Rash/Hives Verified 09/12/22 20:26 Surgical - Exam Vital Signs Temp Pulse Resp BP Pulse Ox 97.3 F L 98 20 124/80 96 09/12/22 16:11 09/12/22 16:11 09/12/22 16:11 09/12/22 16:11 09/12/22 16:11 Physical exam: General: Well-developed, well-nourished HEENT: Normocephalic, sclerae nonicteric Abdomen: Mild right upper quadrant tenderness, nondistended Extremities: No edema Neuro: Alert and oriented Results - Labs 09/12/22 17:04 09/14/22 05:32 Abnormal Lab Results - Last 24 Hours (Table) 09/14/22 Range/Units 05:32 Sodium 131 L (137-145) mmol/L Chloride 93 L (98-107) mmol/L Creatinine 0.31 L (0.66-1.25) mg/dL Glucose 65 L (74-99) mg/dL Calcium 7.7 L (8.4-10.2) mg/dL Diabetes panel 09/14/22 Range/Units 05:32 Sodium 131 L (137-145) mmol/L Potassium 3.9 (3.5-5.1) mmol/L Chloride 93 L (98-107) mmol/L Carbon Dioxide 30 (22-30) mmol/L BUN 13 (9-20) mg/dL Creatinine 0.31 L (0.66-1.25) mg/dL Glucose 65 L (74-99) mg/dL Calcium 7.7 L (8.4-10.2) mg/dL Calcium panel 09/14/22 Range/Units 05:32 Calcium 7.7 L (8.4-10.2) mg/dL Pituitary panel 09/14/22 Range/Units 05:32 Sodium 131 L (137-145) mmol/L Potassium 3.9 (3.5-5.1) mmol/L Chloride 93 L (98-107) mmol/L Carbon Dioxide 30 (22-30) mmol/L BUN 13 (9-20) mg/dL Creatinine 0.31 L (0.66-1.25) mg/dL Glucose 65 L (74-99) mg/dL Calcium 7.7 L (8.4-10.2) mg/dL Adrenal panel 09/14/22 Range/Units 05:32 Sodium 131 L (137-145) mmol/L Potassium 3.9 (3.5-5.1) mmol/L Chloride 93 L (98-107) mmol/L Carbon Dioxide 30 (22-30) mmol/L BUN 13 (9-20) mg/dL Creatinine 0.31 L (0.66-1.25) mg/dL Glucose 65 L (74-99) mg/dL Calcium 7.7 L (8.4-10.2) mg/dL Assessment and Plan (1) Dehydration Narrative/Plan: 86-year-old male with dehydration and malnutrition. Patient with evidence of abdominal malignancy at this time. Unclear whether this represents metastasis from previous cancer. We were consulted for PEG tube placement. Await evaluation by oncology to determine extent of care. Will tentatively schedule for EGD with PEG tube placement however on Saturday. Current Visit: No Status: Acute Code(s): E86.0 - DEHYDRATION SNOMED Code(s): 13258804
[2022-09-14] MEDS: LACTATED RINGERS 1,000 ML IV SCH ×3 (14:41→21:50)
--- NOTE | 2022-09-14 14:56 | P.PN ---
Subjective Progress Note Date: 09/14/22 Hospital Course: 86-year-old male with a PMH of squamous cell carcinoma of the tongue base status post surgery now in remission, hypertension family due to worsening weakness and right upper quadrant abdominal pain. In the emergency room, gallbladder ultrasound revealed gallbladder with findings consistent with sludge with multiple heterogeneous masses in the liver with largest being 8.2 x 7.6 x 8.1 cm. Chest x-ray revealed chronic changes without acute abnormalities. EKG had revealed normal sinus rhythm with left axis deviation and [address]/T- wave changes noted as reviewed by me. Laboratory evaluation was remarkable for sodium 128 (previously 129 on 09/04/22), chloride 87, CO2 36, lactic acid 1.7, total bilirubin 0.6, AST 109, alkaline phosphatase 350, troponin less than 0.012, proBNP 312, and albumin 2.7. Oncology consulted. On IV fluids. Speech recommending PEG or NG feeds given significant aspiration. Sx consulted. Subjective: Patient seen and examined at bedside. No acute events overnight. Denies any new complaints. Pertinent positives and negatives as discussed above, a complete review of systems was performed and all other systems are negative. Vitals Signs Reviewed. General: non toxic, no distress, appears at stated age, normal weight Derm: no unusual rashes/lesions, warm Head: atraumatic, normocephalic, symmetric Eyes: EOMI, no lid lag, anicteric sclera, pupils equal round reactive to light ENT: Nose and ears atraumatic Neck: No cervical lymphadenopathy, trachea midline, supple Mouth: no lip lesion, mucus membranes dry Cardiovascular: S1S2 reg, no murmur, positive dorsalis pedis pulse bilateral, 2+ bilateral lower extremity pitting edema Lungs: CTA bilateral, no rhonchi, no rales, no accessory muscle use Abdominal: soft, right upper quadrant tenderness, no guarding Ext: muscle strength 3 out of 5 in all 4 extremities grossly, no gross muscle atrophy, no contractures, Neuro: CN II-XI grossly intact, no gross focal neuro deficits Psych: Alert, oriented, appropriate affect Data Reviewed Today: Pertinent Labs: Sodium 131, potassium 3.9, creatinine 31, glucose 65 Imaging: CT torso shows hepatic cirrhosis with multiple liver lesions concerning for hepatocellular carcinoma versus metastatic disease, pulmonary nodules could also be metastatic disease Neck CT no significant abnormality Assessment and Plan: Active: Generalized weakness Severe protein calorie malnutrition Hypochloremic hyponatremia Multiple hepatic masses, concerning for hepatocellular carcinoma History of squamous cell carcinoma of tongue Bilateral lower extremity edema, suspect secondary to hypoalbuminemia -Oncology consulted -Further goals of care discussion -Continue LR 100cc/hr -Currently nothing by mouth, patient likely needs a PEG tube -Surgery consulted, note reviewed, possible PEG tube on Saturday -holding diuretics Chronic: Hypertension HLD DVT ppx: Lovenox Code status: full code Anticipated discharge place: pending clinical course Anticipated discharge time: pending clinical course Objective - Vital Signs Vital signs: Vital Signs Temp 97.7 F 09/14/22 07:32 Pulse 74 09/14/22 07:32 Resp 18 09/14/22 07:32 BP 121/70 09/14/22 07:32 Pulse Ox 98 09/14/22 07:39 FiO2 Intake & Output 09/13/22 09/14/22 09/14/22 18:59 06:59 18:59 Intake Total 1200 Balance 1200 Weight 63.503 kg Intake: Intake, IV Titration 1200 Amount Lactated Ringers 1,000 ml 1200 @ 100 mls/hr IV .Q10H [facility] Rx#:[id number] Other: Voiding Method Urinal Urinal Toilet Urinal # Voids 1 - Labs CBC & Chem 7: 09/12/22 17:04 09/14/22 05:32 Labs: Abnormal Lab Results - Last 24 Hours (Table) 09/14/22 Range/Units 05:32 Sodium 131 L (137-145) mmol/L Chloride 93 L (98-107) mmol/L Creatinine 0.31 L (0.66-1.25) mg/dL Glucose 65 L (74-99) mg/dL Calcium 7.7 L (8.4-10.2) mg/dL
--- NOTE | 2022-09-14 17:04 | P.PN ---
Subjective Progress Note Date: 09/14/22 Principal diagnosis: hx squamous cell carcinoma tongue, liver mass At today's visit patient is resting comfortably in bed. Patient is reporting generalized weakness and right upper quadrant pain. He reports pain is worse at night when trying to sleep and with movement. But states pain is minimal when laying flat. Patient failed swallow study. Surgery has been consulted with plan for PEG tube Saturday. Objective - Vital Signs Vital signs: Vital Signs Temp 98.2 F 09/14/22 14:12 Pulse 50 L 09/14/22 14:12 Resp 18 09/14/22 14:12 BP 142/71 09/14/22 14:12 Pulse Ox 95 09/14/22 14:12 FiO2 Intake & Output 09/13/22 09/14/22 09/14/22 18:59 06:59 18:59 Intake Total 1200 Balance 1200 Weight 63.503 kg 63.503 kg Intake: Intake, IV Titration 1200 Amount Lactated Ringers 1,000 ml 1200 @ 100 mls/hr IV .Q10H [facility] Rx#:[id number] Other: Voiding Method Urinal Urinal Toilet Urinal # Voids 1 - Constitutional General appearance: Present: no acute distress, thin - EENT Eyes: Present: anicteric sclerae, EOMI ENT: Present: hearing grossly normal - Respiratory Details: breathing even and unlabored - Cardiovascular Details: skin warm and dry - Peripheral edema leg Peripheral Edema: bilateral: 3+ - Gastrointestinal General gastrointestinal: Present: soft, tenderness Localized gastrointestinal: tender: RUQ, epigastric periumbilical - Integumentary Integumentary: Absent: cyanotic, rash - Musculoskeletal Musculoskeletal: Present: generalized weakness - Psychiatric Psychiatric: Present: A&O x's 3, appropriate affect, intact judgment & insight - Labs CBC & Chem 7: 09/12/22 17:04 09/14/22 05:32 Labs: Abnormal Lab Results - Last 24 Hours (Table) 09/14/22 Range/Units 05:32 Sodium 131 L (137-145) mmol/L Chloride 93 L (98-107) mmol/L Creatinine 0.31 L (0.66-1.25) mg/dL Glucose 65 L (74-99) mg/dL Calcium 7.7 L (8.4-10.2) mg/dL Assessment and Plan (1) Generalized weakness Current Visit: Yes Status: Acute Priority: High Code(s): R53.1 - WEAKNESS SNOMED Code(s): 17173484 (2) Liver mass Current Visit: Yes Status: Acute Priority: High Code(s): R16.0 - HEPATOMEGALY, NOT ELSEWHERE CLASSIFIED SNOMED Code(s): 137853855 (3) Squamous cell cancer of tongue Current Visit: Yes Status: Chronic Priority: Medium Code(s): C02.9 - MALIGNANT NEOPLASM OF TONGUE, UNSPECIFIED SNOMED Code(s): 025024402 Plan: Weakness: -Weakness multifactorial including poor appetite/oral intake and metastatic d isease. History of squamous cell carcinoma of the tongue, bone metastases, July 2022 suspicions for liver mass: -Patient was aware of abnormalities in the liver, opted for close observation. PET Scan is planned later this month. -Discussed with patient the ultrasound findings and the concerning liver lesions. Recommend biopsy, if patient wants to pursue treatment. -CT soft tissue neck revealed no definitive evidence for abscess or significant abnormality. CT chest and abdomen revealed hepatic cirrhosis with multiple liver lesions concerning for hepatocellular carcinoma versus metastatic disease. Scattered hepatic lesions seen throughout the liver, 7.9 cm of the right hepatic lobe, additional smaller at least 8 other lesions in the right hepatic lobe. There is another dominant large right lower lobe lesion measuring 12.1 x 4.7 cm. Trace bilateral pleural effusions and few scattered pulmonary nodules are indeterminate and could related to metastatic disease. -Discussed findings with patient and family. At this time patient states that he does not want to proceed with liver biopsy as he would not want any additional chemotherapy/treatment. Family states they just want patient to have pain controlled at this time. Patient has also failed swallow study and is unable to tolerate oral intake. PEG tube is planned for Saturday with Dr. Lyle. Will change oral pain medications to IV morphine as needed. Spoke in depth with family in regards to hospice care. Family and patient state that they would like to discuss further hospice options. Hospice has been consulted. -Spoke with Dr. Mann regarding palliative radiation. At this time he does not feel that RT would offer significant pain relief. However, if the patient does not opt for hospice, Dr. Mann will revaluate to possibly offer short course of radiation to liver mass. attests: I performed a history and physical examination of this patient, developed impression and plan of care. Discussed with dictator. I agree with dictators note, documented as a scribe.
[2022-09-14] MEDS: MORPHINE SULFATE 2 MG/ML SYRINGE IVP PRN ×2 (17:41→21:50)
[2022-09-15] MEDS: DILTIAZEM CD 240 MG CAP.ER.24H PO SCH ×2 (01:08→20:14)
[2022-09-15] MEDS: PRAVASTATIN SODIUM 40 MG TAB PO SCH ×2 (01:08→20:14)
[2022-09-15] MEDS: MORPHINE SULFATE 2 MG/ML SYRINGE IVP PRN ×3 (06:23→20:14)
--- NOTE | 2022-09-15 07:08 | P.PN ---
Progress Note - Text Progress Note Date: 09/15/22 Patient Aidee scope and change. On exam patient resting comfortably in his bed. His vital signs are stable. Abdomen soft. Patient was scheduled for PEG tube placement on Saturday.
[2022-09-15 08:03] LABS: African American GFR (CKD) >90 (>60 ml/min/1.73 sqM); Anion Gap 8 mmol/L; Blood Urea Nitrogen 14 mg/dL (9-20); Calcium 7.7 mg/dL (8.4-10.2); Carbon Dioxide 30 mmol/L (22-30); Chloride 95 mmol/L (98-107); Glucose 65 mg/dL (74-99); Non-African American GFR(CKD) >90 (>60 ml/min/1.73 sqM); Potassium 3.9 mmol/L (3.5-5.1); Sodium 133 mmol/L (137-145)
[2022-09-15] MEDS: DEXTROSE 5%-LACTATED RINGERS 1,000 ML IV SCH ×2 (09:09→19:08)
[2022-09-15] MEDS: ENOXAPARIN 40 MG/0.4 ML SYRINGE SQ SCH (09:09)
[2022-09-15] MEDS: ASPIRIN 81 MG PO SCH (09:13)
[2022-09-15] MEDS: MULTIVITAMINS, THERA 1 EACH TAB PO SCH (09:13)
[2022-09-15] MEDS: DOCUSATE 100 MG CAP PO SCH (09:13)
--- NOTE | 2022-09-15 12:57 | P.PN ---
Subjective Progress Note Date: 09/15/22 Hospital Course: 86-year-old male with a PMH of squamous cell carcinoma of the tongue base status post surgery now in remission, hypertension family due to worsening weakness and right upper quadrant abdominal pain. In the emergency room, gallbladder ultrasound revealed gallbladder with findings consistent with sludge with multiple heterogeneous masses in the liver with largest being 8.2 x 7.6 x 8.1 cm. Chest x-ray revealed chronic changes without acute abnormalities. EKG had revealed normal sinus rhythm with left axis deviation and [address]/T- wave changes noted as reviewed by me. Laboratory evaluation was remarkable for sodium 128 (previously 129 on 09/04/22), chloride 87, CO2 36, lactic acid 1.7, total bilirubin 0.6, AST 109, alkaline phosphatase 350, troponin less than 0. 012, proBNP 312, and albumin 2.7. Oncology consulted. CT torso shows hepatic cirrhosis with multiple liver lesions concerning for hepatocellular carcinoma versus metastatic disease, pulmonary nodules could also be metastatic disease. Sodium improved On IV fluids. Speech recommending PEG or NG feeds given significant aspiration. Sx consulted. Plan for PEG tube Saturday. Hospice also consulted. Subjective: Patient seen and examined at bedside. No acute events overnight. Denies any new complaints. Pertinent positives and negatives as discussed above, a complete review of systems was performed and all other systems are negative. Vitals Signs Reviewed. General: non toxic, no distress, appears at stated age, normal weight Derm: no unusual rashes/lesions, warm Head: atraumatic, normocephalic, symmetric Eyes: EOMI, no lid lag, anicteric sclera, pupils equal round reactive to light ENT: Nose and ears atraumatic Neck: No cervical lymphadenopathy, trachea midline, supple Mouth: no lip lesion, mucus membranes dry Cardiovascular: S1S2 reg, no murmur, positive dorsalis pedis pulse bilateral, 2+ bilateral lower extremity pitting edema Lungs: CTA bilateral, no rhonchi, no rales, no accessory muscle use Abdominal: soft, right upper quadrant tenderness, no guarding Ext: muscle strength 3 out of 5 in all 4 extremities grossly, no gross muscle atrophy, no contractures, Neuro: CN II-XI grossly intact, no gross focal neuro deficits Psych: Alert, oriented, appropriate affect Data Reviewed Today: Pertinent Labs: Sodium 133, creatinine 0.4, blood sugar 625 Imaging: No new imaging Assessment and Plan: Active: Generalized weakness Severe protein calorie malnutrition Hypochloremic hyponatremia, likely hypovolemic Multiple hepatic masses, concerning for hepatocellular carcinoma History of squamous cell carcinoma of tongue Bilateral lower extremity edema, suspect secondary to hypoalbuminemia -Oncology following, patient wants to talk to hospice, consulted, and patient's family does not opt for hospice, can consider radiation therapy for palliative reasons -Continue LR 100cc/hr, also on D5 -Surgery consulted, note reviewed, possible PEG tube on Saturday -holding diuretics Chronic: Hypertension HLD DVT ppx: Lovenox, hold tomorrow Code status: full code Anticipated discharge place: pending clinical course Anticipated discharge time: pending clinical course Objective - Vital Signs Vital signs: Vital Signs Temp 97.6 F 09/15/22 07:35 Pulse 87 09/15/22 07:35 Resp 18 09/15/22 07:35 BP 133/77 09/15/22 07:35 Pulse Ox 95 09/15/22 07:35 FiO2 Intake & Output 09/14/22 09/15/22 09/15/22 18:59 06:59 18:59 Weight 63.503 kg Other: Voiding Method Toilet Toilet Toilet Urinal Urinal Urinal # Voids 1 - Labs CBC & Chem 7: 09/12/22 17:04 09/15/22 07:23 Labs: Abnormal Lab Results - Last 24 Hours (Table) 09/15/22 Range/Units 07:23 Sodium 133 L (137-145) mmol/L Chloride 95 L (98-107) mmol/L Creatinine 0.40 L (0.66-1.25) mg/dL Glucose 65 L (74-99) mg/dL Calcium 7.7 L (8.4-10.2) mg/dL
[2022-09-16] MEDS: MORPHINE SULFATE 2 MG/ML SYRINGE IVP PRN ×3 (00:39→21:01)
[2022-09-16] MEDS: DEXTROSE 5%-LACTATED RINGERS 1,000 ML IV SCH ×2 (05:22→14:59)
[2022-09-16] MEDS: DOCUSATE 100 MG CAP PO SCH (08:20)
[2022-09-16] MEDS: ENOXAPARIN 40 MG/0.4 ML SYRINGE SQ SCH (08:20)
[2022-09-16] MEDS: ASPIRIN 81 MG PO SCH (08:20)
[2022-09-16] MEDS: MULTIVITAMINS, THERA 1 EACH TAB PO SCH (08:20)
--- NOTE | 2022-09-16 09:38 | P.PN ---
Progress Note - Text Progress Note Date: 09/16/22 Patient remains clinically unchanged. On exam vital signs are stable. Abdomen soft.. Patient scheduled PEG tube with Dr. Plasencia tomorrow.
--- NOTE | 2022-09-16 11:14 | P.PN ---
Subjective Progress Note Date: 09/16/22 Hospital Course: 86-year-old male with a PMH of squamous cell carcinoma of the tongue base status post surgery now in remission, hypertension family due to worsening weakness and right upper quadrant abdominal pain. In the emergency room, gallbladder ultrasound revealed gallbladder with findings consistent with sludge with multiple heterogeneous masses in the liver with largest being 8.2 x 7.6 x 8.1 cm. Chest x-ray revealed chronic changes without acute abnormalities. EKG had revealed normal sinus rhythm with left axis deviation and [address]/T- wave changes noted as reviewed by me. Laboratory evaluation was remarkable for sodium 128 (previously 129 on 09/04/22), chloride 87, CO2 36, lactic acid 1.7, total bilirubin 0.6, AST 109, alkaline phosphatase 350, troponin less than 0.012, proBNP 312, and albumin 2.7. Oncology consulted. CT torso shows hepatic cirrhosis with multiple liver lesions concerning for hepatocellular carcinoma versus metastatic disease, pulmonary nodules could also be metastatic disease. Sodium improved On IV fluids. Speech recommending PEG or NG feeds given significant aspiration. Sx consulted. Plan for PEG tube Saturday. Hospice also consulted. Subjective: Patient seen and examined at bedside. No acute events overnight. Denies any new complaints. Pertinent positives and negatives as discussed above, a complete review of systems was performed and all other systems are negative. Vitals Signs Reviewed. General: non toxic, no distress, appears at stated age, normal weight Derm: no unusual rashes/lesions, warm Head: atraumatic, normocephalic, symmetric Eyes: EOMI, no lid lag, anicteric sclera, pupils equal round reactive to light ENT: Nose and ears atraumatic Neck: No cervical lymphadenopathy, trachea midline, supple Mouth: no lip lesion, mucus membranes dry Cardiovascular: S1S2 reg, no murmur, positive dorsalis pedis pulse bilateral, 2+ bilateral lower extremity pitting edema Lungs: CTA bilateral, no rhonchi, no rales, no accessory muscle use Abdominal: soft, right upper quadrant tenderness, no guarding Ext: muscle strength 3 out of 5 in all 4 extremities grossly, no gross muscle atrophy, no contractures, Neuro: CN II-XI grossly intact, no gross focal neuro deficits Psych: Alert, oriented, appropriate affect Data Reviewed Today: Pertinent Labs: BMP ordered, will be reviewed and available Imaging: No new imaging Assessment and Plan: Active: Severe protein calorie malnutrition Hypochloremic hyponatremia, likely hypovolemic Multiple hepatic masses, concerning for hepatocellular carcinoma History of squamous cell carcinoma of tongue Bilateral lower extremity edema, suspect secondary to hypoalbuminemia -Oncology following, patient wants to talk to hospice, consulted, and if patient and family does not opt for hospice, can consider radiation therapy for palliative reasons -Continue D5LR 100cc/hr -Surgery consulted, note reviewed, likely PEG tube on Saturday -holding diuretics Chronic: Hypertension HLD DVT ppx: Lovenox stopped today in anticipation for PEG tube tomorrow Code status: full code Anticipated discharge place: pending clinical course Anticipated discharge time: pending clinical course Objective - Vital Signs Vital signs: Vital Signs Temp 98.4 F 09/16/22 06:57 Pulse 88 09/16/22 06:57 Resp 17 09/16/22 06:57 BP 127/77 09/16/22 06:57 Pulse Ox 93 L 09/16/22 06:57 FiO2 Intake & Output 09/15/22 09/16/22 09/16/22 18:59 06:59 18:59 Output Total 240 200 Balance -240 -200 Output: Urine 240 200 Other: Voiding Method Toilet Urinal Urinal Urinal # Voids 1 - Labs CBC & Chem 7: 09/12/22 17:04 09/15/22 07:23
[2022-09-16 15:44] LABS: African American GFR (CKD) >90 (>60 ml/min/1.73 sqM); Anion Gap 3 mmol/L; Blood Urea Nitrogen 13 mg/dL (9-20); Calcium 7.7 mg/dL (8.4-10.2); Carbon Dioxide 38 mmol/L (22-30); Chloride 94 mmol/L (98-107); Glucose 107 mg/dL (74-99); Non-African American GFR(CKD) >90 (>60 ml/min/1.73 sqM); Potassium 3.9 mmol/L (3.5-5.1); Sodium 135 mmol/L (137-145)
[2022-09-16] MEDS: PRAVASTATIN SODIUM 40 MG TAB PO SCH (21:09)
[2022-09-16] MEDS: DILTIAZEM CD 240 MG CAP.ER.24H PO SCH (21:09)
[2022-09-17] MEDS: DEXTROSE 5%-LACTATED RINGERS 1,000 ML IV SCH ×3 (00:33→22:22)
[2022-09-17] MEDS: MORPHINE SULFATE 2 MG/ML SYRINGE IVP PRN ×4 (00:34→18:52)
[2022-09-17] MEDS: DOCUSATE 100 MG CAP PO SCH (07:35)
[2022-09-17] MEDS: ASPIRIN 81 MG PO SCH (07:35)
[2022-09-17] MEDS: MULTIVITAMINS, THERA 1 EACH TAB PO SCH (07:35)
[2022-09-17] MEDS: LACTATED RINGERS 1,000 ML IV SCH (10:50)
--- NOTE | 2022-09-17 14:17 | P.PN ---
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 In the ER he underwent extensive evaluation which showed multiple hepatic lesions. Laboratory analysis was remarkable for sodium of 128 (previously 129 on 09/04/22, chloride 87, CO2 36, lactic acid 1.7. AST was markedly elevated at 109, alkaline phosphatase 350. Albumin was low at 2.7. Oncology was consulted and the patient underwent a CT abdomen and pelvis which confirmed hepatic metastasis with cirrhosis. Patient underwent testing with each therapy and ultimately a modified barium swallow which demonstrated severe impairment of the pharyngeal phase and a PEG tube was subsequently recommended. After discussion with o ncology patient and family elected that they will proceed with PEG tube for nutritional supplementation and they would not want any further chemo or radiation and therefore will sign-on with hospice. Imaging: Chest x-ray: Chronic changes without acute pulmonary process Gallbladder ultrasound: Possible gallstones versus sludge, heterogeneous appearance of the liver with multiple masslike areas concerning for liver metastasis versus cholangiocarcinoma CT soft tissue of the neck: No definitive abscess or significant abnormality, airway patent CT chest and abdomen: Hepatic cirrhosis with multiple liver lesions concerning for hepatocellular carcinoma versus metastatic disease, scattered pulmonary nodules, large left renal cyst, severe atherosclerosis Patient seen and examined at bedside. He is doing okay today. He reiterates iterates this plan for PEG tube placement and then to sign-on with hospice as he does not consider any types of treatment for cancer. He denies chest pain, shortness breath, nausea, vomiting. 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 Whitlock. Patient is not actively dying and was benefit from appropriate nutrition well proceed with hospice care -No additional workup oncology - Continue with D5 LR until tube feedings have been optimized Dysphagia with severe protein calorie malnutrition -Patient will go for PEG with surgery today -Dietitian recommendations for tube feedinCAL HN : Rate of 46, as per hour with 30 mls flush every 4 hours and for bolus feedings 5 cans daily -Has been verified with hospice that patient will be able to continue on tube feeds - All medications have been on hold -With resumption of feedings and will need a.m. CBC, CMP, mag, and phosphorus Chronic: Hypertension Dyslipidemia Imaging: None new Data Review: Vitals reviewed temperature 97.6, pulse 87, blood pressure 133/78, O2 sat 95% on room air No additional lab work available for today DVT prophylaxis: Start heparin in a.m., having PEG tube placed today Discussed with: Patient, nursing Anticipated discharge date: In 24-48 hours once tube feeds are at goal Anticipated discharge place: Hospice house This dictation was prepared using [employer] voice recognition software. Though every attempt is made to correct errors during dictation some may still exist. Objective - Vital Signs Vital signs: Vital Signs Temp 97.9 F 09/17/22 11:35 Pulse 92 09/17/22 11:35 Resp 16 09/17/22 11:35 BP 132/53 09/17/22 11:35 Pulse Ox 92 L 09/17/22 13:33 FiO2 Intake & Output 09/16/22 09/17/22 09/17/22 18:59 06:59 18:59 Output Total 320 Balance -320 Weight 63.503 kg Output: Urine 320 Other: Voiding Method Urinal Urinal Bedside Commode Urinal # Voids 3 - Labs CBC & Chem 7: 09/12/22 17:04 09/16/22 14:15 Labs: Abnormal Lab Results - Last 24 Hours (Table) 09/16/22 Range/Units 14:15 Sodium 135 L (137-145) mmol/L Chloride 94 L (98-107) mmol/L Carbon Dioxide 38 H (22-30) mmol/L Creatinine 0.38 L (0.66-1.25) mg/dL Glucose 107 H (74-99) mg/dL Calcium 7.7 L (8.4-10.2) mg/dL
[2022-09-17] MEDS ORDERED: LIDOCAINE 2% INJ 20 MG/ML (2 ML VIAL) ONE (15:10)
[2022-09-17] MEDS ORDERED: PROPOFOL 10 MG/ML 20 ML VIAL IV ONE (15:10)
[2022-09-17] MEDS ORDERED: IV FLUID CONTINUATION 1,000 ML IV ONE (15:10)
[2022-09-17] MEDS ORDERED: SODIUM CHLORIDE 0.9% 100 ML with ceFAZolin 2,000 MG IV ONE ×4 (15:25)
[2022-09-17] MEDS ORDERED: SODIUM CHLORIDE 0.9% 100 ML BAG ONE (15:26)
[2022-09-17] MEDS ORDERED: ceFAZolin 1,000 MG VIAL ONE (15:26)
--- NOTE | 2022-09-17 16:01 | P.PCN ---
Date of Procedure: 09/17/22 Procedure(s) Performed: PREOPERATIVE DIAGNOSIS: Malnutrition POSTOPERATIVE DIAGNOSIS: Same PROCEDURE: EGD with PEG tube placement SURGEON: Dariela EBL: Minimal ANESTHESIA: Sedation COMPLICATIONS: None OPERATIVE PROCEDURE: The patient was placed in the supine position on the endoscopy table. The patient was sedated per anesthesia that time. The Olympus gastroscope was inserted into the oropharynx and passed under direct visualization to the region of the duodenum. No obstruction was seen. The pylorus was widely patent. The stomach was carefully inspected. The stomach was fully insufflated with air. The abdominal wall was inspected. The light was seen shining through the abdominal wall in the left upper quadrant. The previous PEG tube site was well positioned. This site was chosen for PEG tube placement. The area was prepped in the usual sterile fashion. This area was then localized with lidocaine. No air was evident when aspirating while advancing the localizing needle into the stomach until the stomach was reached. A small vertical incision was made using the scalpel. The Seldinger needle was advanced into the lumen of the stomach the wire was advanced. The wire was grasped with an endoscopic snare. The wire was pulled through the oropharynx. The catheter was then threaded over the guidewire and the guidewire and catheter were pulled anteriorly until the hub of the PEG tube catheter was seated against the anterior wall the stomach. The circular bolster was applied and tightened down. The endoscope was then readvanced into the stomach. There was no evidence of any bleeding and there was appropriate tightness on the bolster. The catheter was cut appropriately. The dual port feeding adapter was applied. DISPOSITION: Stable to recovery room
[2022-09-17] MEDS: DILTIAZEM CD 240 MG CAP.ER.24H PO SCH (22:22)
[2022-09-17] MEDS: PRAVASTATIN SODIUM 40 MG TAB PO SCH (22:23)
[2022-09-18] MEDS: MORPHINE SULFATE 2 MG/ML SYRINGE IVP PRN ×4 (05:24→21:22)
[2022-09-18] MEDS: DEXTROSE 5%-LACTATED RINGERS 1,000 ML IV SCH ×2 (05:24→16:19)
--- NOTE | 2022-09-18 08:48 | XR ---
EXAMINATION TYPE: XR abdomen 2V DATE OF EXAM: 09/18/2022 COMPARISON: NONE HISTORY: Pain TECHNIQUE: One view abdominal series FINDINGS: The osseous structures are intact. The bowel gas pattern is nonspecific. There appears to be a gastr ostomy tube. Vascular calcifications and hypertrophic and degenerative change of the spine. Surgery n oted overlying the pelvis. There is contrast within the bowel likely representing right colon. Bibasi lar subsegmental consolidation IMPRESSION: 1. Overall bowel gas pattern is nonspecific with no diagnostic evidence of obstruction. 2. Bibasilar atelectasis or infiltrate
[2022-09-18] MEDS: DOCUSATE 100 MG CAP PO SCH (09:46)
[2022-09-18] MEDS: MULTIVITAMINS, THERA 1 EACH TAB PO SCH (09:46)
[2022-09-18] MEDS: ASPIRIN 81 MG PO SCH (09:46)
--- NOTE | 2022-09-18 11:33 | P.PN ---
Subjective Progress Note Date: 09/18/22 CHIEF COMPLAINT: Malnutrition HISTORY OF PRESENT ILLNESS: Patient status post EGD with PEG tube placement. He is scheduled for tube feeds to be initiated today. Abdominal x-ray overall bowel gas pattern is nonspecific with no diagnostic evidence of obstruction. Bibasilar atelectasis or infiltrate. Patient denies any abdominal pain. Denies any nausea or vomiting. Denies any bowel movements or flatus. Afebrile. PHYSICAL EXAM: VITAL SIGNS: Reviewed. GENERAL: Well-developed in no acute distress. ABDOMEN: Mildly distended. Nontender. PEG tube site clean dry and intact. NEUROLOGIC: Alert and oriented. Cranial nerves II through XII grossly intact. ASSESSMENT: 1. Severe protein calorie malnutrition 2. Squamous cell cancer of the tongue and liver mass PLAN: -Patient scheduled to start tube feedings today -Dietitian consulted for tube feeding recommendations -Continue supportive care Physician Winch Driver note has been reviewed by physician. Signing provider agrees with the documented findings, assessment, and plan of care. I have personally seen and examined the patient, reviewed the MATERIALS SCIENTIST /PAs history, exam and MDM and agree with the assessment and plan as written. Based on total visit time, I have performed more than 50% of the visit. As above: Patient doing well at this time. Tolerating tube feeds. Continue advancing as tolerated. Objective - Vital Signs Vital signs: Vital Signs Temp 97.9 F 09/18/22 07:57 Pulse 86 09/18/22 07:57 Resp 16 09/18/22 07:57 BP 128/76 09/18/22 07:57 Pulse Ox 97 09/18/22 07:57 FiO2 Intake & Output 09/17/22 09/18/22 09/18/22 18:59 06:59 18:59 Intake Total 1350 1200 Balance 1350 1200 Weight 63.503 kg Intake: IV 150 Intake, IV Titration 1200 1200 Amount Dextrose 5%-Lactated 1200 1200 Ringers 1,000 ml @ 100 mls/hr IV .Q10H [facility] Rx#: [id number] Other: Voiding Method Bedside Commode Bedside Commode Urinal Urinal - Labs CBC & Chem 7: 09/12/22 17:04 09/16/22 14:15
[2022-09-18] MEDS: LACTATED RINGERS 1,000 ML IV SCH (12:18)
--- NOTE | 2022-09-18 14:37 | P.PN ---
Subjective Progress Note Date: 09/18/22 Principal diagnosis: hx squamous cell carcinoma tongue, liver mass At today's visit patient is resting comfortably in bed. Patient is reporting generalized weakness and right upper quadrant pain. He reports abdominal pain is well controlled on current pain med regimen. S/p peg tube placement. Plan for discharge tomorrow to hospice house. Objective - Vital Signs Vital signs: Vital Signs Temp 98.7 F 09/18/22 12:57 Pulse 86 09/18/22 12:57 Resp 16 09/18/22 12:57 BP 152/81 09/18/22 12:57 Pulse Ox 94 L 09/18/22 12:57 FiO2 Intake & Output 09/17/22 09/18/22 09/18/22 18:59 06:59 18:59 Intake Total 1350 1200 Balance 1350 1200 Weight 63.503 kg 63.503 kg Intake: IV 150 Intake, IV Titration 1200 1200 Amount Dextrose 5%-Lactated 1200 1200 Ringers 1,000 ml @ 100 mls/hr IV .Q10H [facility] Rx#: [id number] Other: Voiding Method Bedside Commode Bedside Commode Bedpan Urinal Urinal - Constitutional General appearance: Present: no acute distress, thin - EENT Eyes: Present: anicteric sclerae, EOMI ENT: Present: hearing grossly normal - Respiratory Details: breathing is even and unlabored - Cardiovascular Details: skin is warm and dry - Gastrointestinal General gastrointestinal: Present: soft, tenderness Localized gastrointestinal: tender: RUQ - Musculoskeletal Musculoskeletal: Present: generalized weakness - Psychiatric Psychiatric: Present: A&O x's 3, appropriate affect, intact judgment & insight - Labs CBC & Chem 7: 09/12/22 17:04 09/16/22 14:15 Assessment and Plan (1) Generalized weakness Current Visit: Yes Status: Acute Priority: High Code(s): R53.1 - WEAKNESS SNOMED Code(s): 10634541 (2) Liver mass Current Visit: Yes Status: Acute Priority: High Code(s): R16.0 - HEPATOMEGALY, NOT ELSEWHERE CLASSIFIED SNOMED Code(s): 992207646 (3) Squamous cell cancer of tongue Current Visit: Yes Status: Chronic Priority: Medium Code(s): C02.9 - MALIGNANT NEOPLASM OF TONGUE, UNSPECIFIED SNOMED Code(s): 301718494 Plan: Weakness: -Weakness multifactorial including poor appetite/oral intake and metastatic disease. History of squamous cell carcinoma of the tongue, bone metastases, July 2022 suspicions for liver mass: -Patient was aware of abnormalities in the liver, opted for close observation. PET Scan was scheduled for later this month. -Discussed with patient the ultrasound findings and the concerning liver lesions. Recommend biopsy, if patient wants to pursue treatment. -CT soft tissue neck revealed no definitive evidence for abscess or significant abnormality. CT chest and abdomen revealed hepatic cirrhosis with multiple liver lesions concerning for hepatocellular carcinoma versus metastatic disease. Scattered hepatic lesions seen throughout the liver, 7.9 cm of the right hepatic lobe, additional smaller at least 8 other lesions in the right hepatic lobe. There is another dominant large right lower lobe lesion measuring 12.1 x 4.7 cm. Trace bilateral pleural effusions and few scattered pulmonary nodules are indeterminate and could related to metastatic disease. -Discussed findings with patient and family. At this time patient states that he does not want to proceed with liver biopsy as he would not want any additional chemotherapy/treatment. Family states they just want patient to have pain controlled at this time. Patient has also failed swallow study and is unable to tolerate oral intake. He is s/p PEG tube placement. Spoke in depth with family in regards to hospice care. Hospice consulted and plan is for patient to be discharged to hospice house tomorrow. -Spoke with Dr. Mann regarding palliative radiation. At this time he does not feel that RT would offer significant pain relief due to multitude of liver lesions. Discussed this with patient and her verbalized understanding. *Patient is cleared from hem/onc standpoint once cleared by IM and other consulted medical specialities
--- NOTE | 2022-09-18 18:03 | P.PN ---
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 In the ER he underwent extensive evaluation which showed multiple hepatic lesions. Laboratory analysis was remarkable for sodium of 128 (previously 129 on 09/04/22, chloride 87, CO2 36, lactic acid 1.7. AST was markedly elevated at 109, alkaline phosphatase 350. Albumin was low at 2.7. Oncology was consulted and the patient underwent a CT abdomen and pelvis which confirmed hepatic metastasis with cirrhosis. Patient underwent testing with each therapy and ultimately a modified barium swallow which demonstrated severe impairment of the pharyngeal phase and a PEG tube was subsequently recommended. After discussion with o ncology patient and family elected that they will proceed with PEG tube for nutritional supplementation and they would not want any further chemo or radiation and therefore will sign-on with hospice. Imaging: Chest x-ray: Chronic changes without acute pulmonary process Gallbladder ultrasound: Possible gallstones versus sludge, heterogeneous appearance of the liver with multiple masslike areas concerning for liver metastasis versus cholangiocarcinoma CT soft tissue of the neck: No definitive abscess or significant abnormality, airway patent CT chest and abdomen: Hepatic cirrhosis with multiple liver lesions concerning for hepatocellular carcinoma versus metastatic disease, scattered pulmonary nodules, large left renal cyst, severe atherosclerosis Patient seen and examined at bedside. He is complaining of abdominal pain that is worse with deep inspiration, feeling weak all over, no chest pain or shortness of breath. Multiple family members at bedside and educated on likely transition to hospice house once tolerating tube feeds. Vital signs reviewed General: nontoxic, no distress, appears at stated age, thin, in a seated, temporal wasting Cardiovascular: S1S2 reg, no murmur, positive posterior tibial pulse bilateral, HEENT: Dry mucous membranes Lungs: CTA bilateral, no rhonchi, no rales , no accessory muscle use Abdominal: soft, nontender to palpation, no guarding, no appreciable organomegaly Ext: no gross muscle atrophy, 2+ pitting edema bilateral lower extremities, no c ontractures Neuro: CN II-XI grossly intact, no focal neuro deficits Psych: Alert, oriented, appropriate affect Assessment/Plan: Multiple pulmonary 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 Start tube feeds and cleared by surgery -Monitor for signs of refeeding syndrome with CBC, CMP, mag, phosphorus in a.m. Plan to discharge to hospice house once patient is tolerating tube feeding at goal of 2CAL HN : Rate of 46, as per hour with 30 mls flush every 4 hours and for bolus feedings 5 cans daily -Surgery note reviewed: Cleared for tube feedings today Chronic: Hypertension Dyslipidemia Imaging: None new Data Review: Vital signs reviewed. Patient afebrile. Blood pressure 128/76 morning No new labs available DVT prophylaxis: Start heparin in a.m., having PEG tube placed today Discussed with: Patient, nursing Anticipated discharge date: In 24-48 hours once tube feeds are at goal Anticipated discharge place: Hospice house This dictation was prepared using Wh[employer]per voice recognition software. Though every attempt is made to correct errors during dictation some may still exist. Objective - Vital Signs Vital signs: Vital Signs Temp 98.7 F 09/18/22 12:57 Pulse 86 09/18/22 12:57 Resp 16 09/18/22 12:57 BP 152/81 09/18/22 12:57 Pulse Ox 94 L 09/18/22 12:57 FiO2 Intake & Output 09/17/22 09/18/22 09/18/22 18:59 06:59 18:59 Intake Total 1350 1200 Balance 1350 1200 Weight 63.503 kg 63.503 kg Intake: IV 150 Intake, IV Titration 1200 1200 Amount Dextrose 5%-Lactated 1200 1200 Ringers 1,000 ml @ 100 mls/hr IV .Q10H [facility] Rx#: [id number] Other: Voiding Method Bedside Commode Bedside Commode Bedpan Urinal Urinal - Labs CBC & Chem 7: 09/12/22 17:04 09/16/22 14:15
[2022-09-18 20:11] LABS: Glucose,Whole Blood 108 mg/dL (70-110)
[2022-09-18] MEDS: DILTIAZEM CD 240 MG CAP.ER.24H PO SCH (21:13)
[2022-09-18] MEDS: PRAVASTATIN SODIUM 40 MG TAB PO SCH (21:13)
[2022-09-19 00:04] LABS: Glucose,Whole Blood 97 mg/dL (70-110)
[2022-09-19] MEDS: DEXTROSE 5%-LACTATED RINGERS 1,000 ML IV SCH (02:28)
[2022-09-19 05:53] LABS: Glucose,Whole Blood 124 mg/dL (70-110)
[2022-09-19 06:13] LABS: ALT 31 U/L (4-49); AST 95 U/L (17-59); African American GFR (CKD) >90 (>60 ml/min/1.73 sqM); Albumin 1.9 g/dL (3.5-5.0); Albumin/Globulin Ratio 0.8; Alkaline Phosphatase 254 U/L (38-126); Anion Gap 1 mmol/L; Blood Urea Nitrogen 13 mg/dL (9-20); Calcium 7.6 mg/dL (8.4-10.2); Carbon Dioxide 35 mmol/L (22-30); Chloride 99 mmol/L (98-107); Globulin 2.5 g/dL; Glucose 129 mg/dL (74-99); Magnesium 1.6 mg/dL (1.6-2.3); Non-African American GFR(CKD) >90 (>60 ml/min/1.73 sqM); Phosphorus 2.6 mg/dL (2.5-4.5); Potassium 3.5 mmol/L (3.5-5.1); Sodium 135 mmol/L (137-145); Total Bilirubin 1.2 mg/dL (0.2-1.3); Total Protein 4.4 g/dL (6.3-8.2)
[2022-09-19 06:29] LABS: Anisocytosis Slight; HCT 37.3 % (39.0-53.0); HGB 11.7 gm/dL (13.0-17.5); Hypochromasia Moderate; MCH 26.4 pg (25.0-35.0); MCHC 31.3 g/dL (31.0-37.0); MCV 84.4 fL (80.0-100.0); Mean Platelet Volume 7.8; RBC 4.42 m/uL (4.30-5.90); RDW 16.8 % (11.5-15.5)
[2022-09-19 07:02] LABS: Platelet Count 169 k/uL (150-450)
[2022-09-19 07:58] VITALS: BP 126/73; PULSE 81; RESP 16; TEMP 97.4
[2022-09-19] MEDS: MULTIVITAMINS, THERA 1 EACH TAB PO SCH (08:11)
[2022-09-19] MEDS: LACTATED RINGERS 1,000 ML IV SCH (08:11)
[2022-09-19] MEDS: ASPIRIN 81 MG PO SCH (08:11)
[2022-09-19] MEDS: DOCUSATE 100 MG CAP PO SCH (08:11)
[2022-09-19] MEDS ORDERED: HYDROcodone/APAP 5-325MG 1 EACH TAB PO PRN (12:23)
--- NOTE | 2022-09-19 12:30 | P.PN ---
Subjective Progress Note Date: 09/19/22 CHIEF COMPLAINT: Malnutrition HISTORY OF PRESENT ILLNESS: Patient status post EGD with PEG tube placement. Patient is tolerating tube feeds. Tube feeds are currently at 45 mL per hour. He denies any abdominal pain. Denies any nausea or vomiting. He has been having flatus. Patient scheduled for discharge today to hospice PHYSICAL EXAM: VITAL SIGNS: Reviewed. GENERAL: Well-developed in no acute distress. ABDOMEN: Mildly distended. Nontender. PEG tube site clean dry and intact. NEUROLOGIC: Alert and oriented. Cranial nerves II through XII grossly intact. ASSESSMENT: 1. Severe protein calorie malnutrition 2. Squamous cell cancer of the tongue and liver mass PLAN: -Continue tube feeds -Patient can be discharged from surgical standpoint Physician Drums Teacher note has been reviewed by physician. Signing provider agrees with the documented findings, assessment, and plan of care. Objective - Vital Signs Vital signs: Vital Signs Temp 97.4 F L 09/19/22 06:57 Pulse 81 09/19/22 06:57 Resp 16 09/19/22 06:57 BP 126/73 09/19/22 06:57 Pulse Ox 95 09/19/22 06:57 FiO2 Intake & Output 09/18/22 09/19/22 09/19/22 18:59 06:59 18:59 Output Total 100 Balance -100 Weight 63.503 kg 63.5 kg 63.5 kg Output: Urine 100 Other: Voiding Method Bedpan Bedpan Bedpan # Voids 1 - Labs CBC & Chem 7: 09/19/22 05:47 09/19/22 05:47 Labs: Abnormal Lab Results - Last 24 Hours (Table) 09/19/22 09/19/22 09/19/22 Range/Units 05:47 05:47 05:50 Hgb 11.7 L (13.0-17.5) gm/dL Hct 37.3 L (39.0-53.0) % RDW 16.8 H (11.5-15.5) % Sodium 135 L (137-145) mmol/L Carbon Dioxide 35 H (22-30) mmol/L Creatinine 0.32 L (0.66-1.25) mg/dL Glucose 129 H (74-99) mg/dL POC Glucose (mg/dL) 124 H (70-110) mg/dL Calcium 7.6 L (8.4-10.2) mg/dL AST 95 H (17-59) U/L Alkaline Phosphatase 254 H (38-126) U/L Total Protein 4.4 L (6.3-8.2) g/dL Albumin 1.9 L (3.5-5.0) g/dL
--- NOTE | 2022-09-19 14:21 | P.DS ---
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 In the ER he underwent extensive evaluation which showed multiple hepatic lesions. Laboratory analysis was remarkable for sodium of 128 (previously 129 on 09/04/22, chloride 87, CO2 36, lactic acid 1.7. AST was markedly elevated at 109, alkaline phosphatase 350. Albumin was low at 2.7. Oncology was consulted and the patient underwent a CT abdomen and pelvis which confirmed hepatic metastasis with cirrhosis. Patient underwent testing with each therapy and ultimately a modified barium swallow which demonstrated severe impairment of the pharyngeal phase and a PEG tube was subsequently recommended. After discussion with oncology patient and family elected that they will proceed with PEG tube for nutritional supplementation and they would not want any further chemo or radiation and therefore will sign-on with hospice. Patient being discharged to hospice. Patient seen and examined at bedside. Vital signs reviewed and stable. General: nontoxic, no distress, appears at stated age, thin, in a seated, temporal wasting Cardiovascular: S1S2 reg, no murmur, positive posterior tibial pulse bilateral, HEENT: Dry mucous membranes Lungs: CTA bilateral, no rhonchi, no rales , no accessory muscle use Abdominal: soft, nontender to palpation, no guarding, no appreciable organomegaly Ext: no gross muscle atrophy, 2+ pitting edema bilateral lower extremities, no contractures Neuro: CN II-XI grossly intact, no focal neuro deficits Psych: Alert, oriented, appropriate affect A total of 32 minutes of time were spent preparing this complex discharge summary. Patient was discharged on 09/19/12 at 11:10. Patient Condition at Discharge: Stable Plan - Discharge Summary New Discharge Prescriptions: Continue Omeprazole 20 mg PO DAILY HYDROcodone/APAP 5-325MG [[place] 5-325] 1 tab PO Q6HR PRN PRN Reason: Pain dilTIAZem HCL [dilTIAZem HCL 24Hr ER (Xr)] 240 mg PO HS Docusate [Colace] 100 mg PO DAILY Discontinued Pravastatin Sodium [Pravachol] 40 mg PO HS Indapamide 1.25 mg PO DAILY Aspirin 81 mg PO DAILY Vit C/E/Zn/Coppr/Lutein/Zeaxan [Preservision Areds 2 Softgel] 1 cap PO BID Furosemide [Lasix] 20 mg PO DAILY Multivitamins, Thera [Multivitamin (formulary)] 1 tab PO DAILY Discharge Medication List dilTIAZem HCL [dilTIAZem HCL 24Hr ER (Xr)] 240 mg PO HS 02/15/21 [History] Omeprazole 20 mg PO DAILY 02/12/22 [History] Docusate [Colace] 100 mg PO DAILY 09/04/22 [History] HYDROcodone/APAP 5-325MG [[place] 5-325] 1 tab PO Q6HR PRN 09/04/22 [History] Follow up Appointment(s)/Referral(s): Jamison Recinos MD [Primary Care Provider] - 1-2 days Bjorn Jefferson MD [STAFF PHYSICIAN] - 10/10/22 8:15 am Patient Instructions/Handouts: Hospice Care (GEN) Discharge Disposition: DISCH TO [facility]
== END 2022-09-19 13:20 | disposition hospice, inpatient (51) | DRG 435 ==
LOC: EC 16:05 → 5NMEDONC 21:59 → 6NMEDSUR 23:04 → 5NMEDONC 09-13 17:23
PROVIDERS: ADMIT Internal Medicine; ATTEND Internal Medicine
PROC: 3E0G76Z Introduction of Nutritional Substance into Upper GI, Via Natural or Artificial Opening (ICD-10-PCS; 2022-09-17)
PROC: 0DH63UZ Insertion of Feeding Device into Stomach, Percutaneous Approach (ICD-10-PCS; principal; 2022-09-17 14:15)
DX: C78.7 Secondary malignant neoplasm of liver and intrahepatic bile duct (principal); E43 Unspecified severe protein-calorie malnutrition; C79.51 Secondary malignant neoplasm of bone; E87.1 Hypo-osmolality and hyponatremia; C78.00 Secondary malignant neoplasm of unspecified lung; R13.13 Dysphagia, pharyngeal phase; L89.322 Pressure ulcer of left buttock, stage 2; L89.151 Pressure ulcer of sacral region, stage 1; E88.09 Other disorders of plasma-protein metabolism, not elsewhere classified; E86.0 Dehydration; K74.60 Unspecified cirrhosis of liver; N28.1 Cyst of kidney, acquired; I25.10 Atherosclerotic heart disease of native coronary artery without angina pectoris; E86.1 Hypovolemia; E87.8 Other disorders of electrolyte and fluid balance, not elsewhere classified; T17.918A Gastric contents in respiratory tract, part unspecified causing other injury, initial encounter; I10 Essential (primary) hypertension; E87.5 Hyperkalemia; R60.0 Localized edema; E78.5 Hyperlipidemia, unspecified; Z51.5 Encounter for palliative care; Z85.528 Personal history of other malignant neoplasm of kidney; Z85.810 Personal history of malignant neoplasm of tongue; Z92.3 Personal history of irradiation; Z92.21 Personal history of antineoplastic chemotherapy; Z68.20 Body mass index [BMI] 20.0-20.9, adult; Z79.82 Long term (current) use of aspirin; Z79.899 Other long term (current) drug therapy; Z88.0 Allergy status to penicillin; Z91.018 Allergy to other foods
CPT/HCPCS: 36415; 43246; 70491; 71046; 71260; 74019; 74160; 74230; 76705; 80048; 80053; 81001; 83605; 83735; 83880; 84100; 84484; 85025; 85027; 85610; 85730; 93005; 94760; 96360; 99285